=== PATIENT | female | born 1980 | race Caucasian/White ===

== ENCOUNTER 2024-08-21 01:00 | Day surgery (SDC) | payer OTHER, SELFPAY ==
[2024-08-09 11:52] VITALS: BMI 24.5
--- NOTE | 2024-08-09 12:23 | PC.NURSE ---
Report to the Outpatient Waiting Room, entrance under the green pavilion located off [facility], at time __0900AM on date _08/21/24 . Planned Procedure Time: __1100AM .? Time changes happen often and if your time is changed the preop area will call you the afternoon before. - You and your visitor will be asked to self-screen and do not enter if you have any COVID symptoms. Please call surgeon if you need to reschedule. - A mask is optional within the hospital at this time. Patients may have clear liquids (water, carbonated beverages, clear teas, apple juice) until 3 hours prior to surgery with a maximum of 20 ounces. - No food from midnight until time of surgery and no smoking, or chewing tobacco (or any form of nicotine). NO MED MARIJUANA ON THE MORNING OF SURGERY No chewing gum, candy or mints. Take only the following medications with a SIP of water on the morning of surgery: _BUSPIRONE, BUPROPRION, VENLAFAXINE, ALPRAZOLAM,_AMLODIPINE DO NOT STOP ANY OF YOUR OTHER PRESCRIPTION MEDICATIONS PRIOR TO SURGERY EXCEPT THE FOLLOWING Hold all vitamins and supplements for 3 days per anesthesiologist. Medications to discontinue per physician ORENCIA-MANAGE PER YOUR MILKING MACHINE OPERATOR INSTRUCTION: D/C 2WKS BEFORE SURGERY AND D/C 2 WKS AFTER SURGERY Date to take last dose Please no make-up, nail urdu, hairspray, perfume, deodorant, or body powder the day of surgery.? No jewelry (including any body piercings) or valuables the day of surgery, leave them at home.? Please take a shower or bath the night before, or the morning of, surgery with an antibacterial soap.? Wear comfortable, loose fitting clothing.? Children are encouraged to wear pajamas. - Jewelry must be removed prior to entering the operating room.? Rings and piercings that are not removed may be cut off. - The hospital will not accept responsibility for valuables.? - Please leave all valuables, including medications, at home the day of surgery. If you are going home after surgery, a licensed owner operator tanker truck driver must drive you home.? - NO public transportation without another adult if you receive anesthesia. - We recommend that an adult stay with you for 24 hours following discharge. - We also recommend that you do not drive, make important decision, drink alcoholic beverages, or take any drugs that were not prescribed by your health care provider for at least 24 hours after your discharge time. Follow any additional instructions given to you from your surgeon. Telephone instructions given to __MELISSA and asked if any additional questions and then verbalized understanding. Patient advised to call surgeon office or pre surgery nurse liaison [phone] if any additional questions.
[2024-08-21] VITALS (9 sets, daily range): BP systolic 131–157; BP diastolic 60–97; PULSE 81–119; RESP 13–17; TEMP 36.7–36.9; O2SAT 97–100
--- OUTSIDE RECORDS SUMMARY | 2024-08-21 01:04 | XMS_ITS | Clinical Summary ---
Author Organization [facility] Address [address] [place] [address] Care Team Providers Care Settlement Processor Name Role Phone Dewayne Gomes MD Primary Care Provider Source Comments [facility],non-[facility] Affiliates and Associated Physician Practices is amultiple site organization consisting of ambulatory clinics and hospital sitesin [place], [place], [place] and [place]. This disclosure is being madepursuant to the Care Everywhere program and may not contain all information available regarding this patient. Last updated 17.[facility] [employer] Social History Tobacco Use Types Packs/Day Years Used Date Smoking Tobacco: Never Assessed Comments Unknown Sex and Gender Information Value Date Recorded Sex Assigned at Not on file Legal Sex Female 8:54 AM BIOASSAYIST Gender Identity Not on file Sexual Orientation Not on file Plan of Treatment Health Maintenance Due Date Last Done Comments LIPID TESTING 1981 MAMMOGRAM 1981 HIV SCREENING 1996 HEPATITIS C SCREENING 05/31/1999 DTAP/TDAP/TD VACCINES (1 - Tdap) 2000 HEPATITIS B VACCINE (1 of 3 - 19+ 3-dose series) 2000 COVID-19 VACCINE (2023-2 5 season) 2023 DEPRESSION SCREENING 03/06/2024 INFLUENZA VACCINE (Season Ended) 2024 ZOSTER VACCINE (1 of 2) 06/05/2031 HIB VACCINE Aged Out No longer eligi ble based on patient's age to complete this topic HPV VACCINE Aged Out No longer eligi ble based on patient's age to complete this topic MENINGOCOCCAL (Group B) VACC INE SHARED DECISION-MAKING Aged Out No longer eligibl e based on patient's age to complete this topic MENINGOCOCCAL GROUPS A/C/Y/W VACCINE Aged Out No longer eligible b ased on patient's age to complete this topic PNEUMOCOCCAL VACCINE Aged Out No long er eligible based on patient's age to complete this topic Insurance MEDICAID - OUT OF STATE [facility] Care Teams Settlement Processor Relationship Specialty Start Date End Date Dewayne Gomes MD PCP - General 04/04/18
--- OUTSIDE RECORDS SUMMARY | 2024-08-21 01:04 | XMS_ITS | Encounter Summary ---
Author Organization [facility] Facility Care Team Providers Care Manager Of Community Relations Name Role Phone John Seay DO Primary Care Provider + Eduardo Chang MD Unavailable [phone] John Seay DO Primary Care Provider + Encounter Details Date Type Department Care Team (Latest Contact Info) Description 03/30/2018 Orders Only [facility]INCON[facility] ProviderDior MD [address] [place] [id number] Social History Tobacco Use Types Packs/Day Years Used Date Smoking Tobacco: Never Assessed Comments Unknown Sex and Gender Information Value Date Recorded Sex Assigned at Not on file Legal Sex Female 5:32 AM TELECOMMUNICATIONS ADMINISTRATOR Gender Identity Female 10/24/2019 3:24 PM CDT Sexual Orientation Straight 12/03/2018 7: 01 AM CDT documented as of this encounter Plan of Treatment Not on file documented as of this encounter Procedures Procedure Name Priority Date/Time Associated Diagnosis Comments SCAN - LABS 03/30/2018 12:00 AM TELECOMMUNICATIONS ADMINISTRATOR documented in this encounter Results * SCAN - LABS (03/30/2018 12:00 AM TELECOMMUNICATIONS ADMINISTRATOR) Narrative 03/30/2018 12:00 AM TELECOMMUNICATIONS ADMINISTRATOR Ordered by an unspecified provider. us Historical Provider Final Res ult documented in this encounter Visit Diagnoses Not on filedocumented in this encounter Care Teams Manager Of Community Relations Relationship Specialty Start Date End Date John Seay DO PCP - General Family Medicine 04/05/18 06/14/23 John Seay DO [address] [place] [address] PCP - General Family Medicine 06/15/23 Eduardo Chang MD [address] [place] [address] Consulting Physician Rheumatology 05/04/18 documented as of this encounter
--- OUTSIDE RECORDS SUMMARY | 2024-08-21 01:04 | XMS_ITS | Referral Summary ---
Author Organization [place] [id number] [facility] Address [address] [place] [address] Phone Care Team Providers Care Prescription Eyeglass Maker Name Role Phone Eduardo Chang MD Unavailable [phone] John Seay DO Primary Care Provider + Encounters Date Type Department Care Team Description 06/18/2024 Results Follow-Up [facility] [address] [place] [address] Cielo Ptael PA CBC with auto differential, Comprehensive metabolic panel, Basic metabolic panel 06/17/2024 3:30 PM CDT Office Visit [facility] [address] [place] [address] Cielo Patel PA Seronegative rheumatoid arthritis (HCC) (Primary Dx); Fibromyalgia; Encounter for medication monitoring from Last 3 Months Allergies Active Allergy Reactions Criticality Noted Date Comments Morphine Itching,Nausea & Vomiting Low 04/09/2018 Medications cetirizine (ZyrTEC) 10 mg tabletIndicati ons:Seasonal Allergic Rhinitis Take 1 tablet (10 mg total) by mouth every morning Active busPIRone (BUSPAR) 10 mg tablet TAKE 1 TABLET BY MOUTH THREE TIMES A DAY 270 tablet 1 09/14/[address] (PROTONIX) 40 mg EC tablet TAKE 1 TABLET BY MOUTH TWICE A DAY 60 tablet 2 02/09/20 23 Active venlafaxine XR (EFFEXOR-XR) 150 mg 24 hr capsule TAKE 1 CAPSULE BY MOUTH EVERY DAY 90 capsule 03/17/19 24 Active venlafaxine XR (EFFEXOR-XR) 75 mg 24 hr capsule TAKE 1 CAPSULE BY MOUTH EVERY DAY 90 capsule 03/17/[address] (VOLTAREN) 75 mg EC tablet TAKE 1 TABLET BY MOUTH TWICE A DAY 60 tablet 2 02/29/20 24 Active ALPRAZolam (XANAX) 0.25 mg tablet Take 1 tablet (0.25 mg total) by mouth 2 (two) times a day Active leflunomide (ARAVA) 20 mg tablet Take 1 tablet (20 mg total) by mouth daily 90 tablet 1 06/08/19 25 Active tiZANidine (ZANAFLEX) 4 mg tablet Take 1 tablet (4 mg total) by mouth every 6 (six) hours as needed for muscle spasms 30 tablet 2 06/18/19 25 Active Orencia ClickJect 125 mg/mL auto-injector INJECT 125 MG (1 ML) UNDER THE SKIN EVERY 7 DAYS 4 mL 2 08/07/19 25 Active ferrous sulfate 325 mg (65 mg of elemental iron) tabletIndicati ons:Iron Deficiency Anemia Take 1 tablet (325 mg total) by mouth daily with breakfast 30 tablet 11 08/03/19 24 025 Orencia ClickJect 125 mg/mL auto-injector INJECT 125 MG (1 ML) UNDER THE SKIN EVERY 7 DAYS 4 mL 2 05/28/19 25 025 Discontinued Active Problems Problem Noted Date Diagnosed Date Primary osteoarthritis involving multiple joints 12/18/2023 Assessment & Plan (12/18/2023 3:43 PM CDT): Known multifocal OA, requests refill of diclofenac 75 mg bid. Aware of risks of NSAIDs and to avoid taking any ibuprofen/naproxen while taking diclofenac. Check monitoring labs. SHAYNE (obstructive sleep apnea) 07/18/2022 Assessment & Plan (01/16/2023 9:22 AM CLINICAL REVIEWER): Patient has continued symptoms, she will continue with CPAP at 12 cm of water pressure. I have ordered an F 30 mask. I have also provided the patient a nasal mask. [facility] medical Assessment & Plan (09/19/2022 3:55 PM CDT): I have sen to supply the patient with CPAP card set at 12 cm water pressure. The patient's DME is [facility]. Patient continue to wear CPAP at 12 cm water pressure while sleeping. Assessment & Plan (07/18/2022 8:58 AM CDT): The patient is benefiting from CPAP therapy. She has been able to be weaned off her antihypertensive medications. Her AHI still remained slightly high and I will send an order to [facility] to increase her CPAP setting to 12 cm water pressure. She will follow-up with me in 2 months. 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 Continue current treatment. Assessment & Plan (03/29/2022 3:59 PM CLINICAL REVIEWER): Chronic condition Not at goal Increase effexor Assessment & Plan (10/26/2021 4:29 PM CDT): stable Assessment & Plan (08/31/2021 3:22 PM CDT): Patient is well controlled. Continue current treatment. Primary hypertension 05/20/2021 Assessment & Plan (07/11/2022 4:51 PM CDT): Doing well Off all bp meds Assessment & Plan (10/26/2021 4:29 PM CDT): Patient is well controlled. Continue current treatment. Assessment & Plan (08/31/2021 3:22 PM CDT): Patient is well controlled. Continue current treatment. Assessment & Plan (07/22/2021 3:35 PM CDT): Cont current rx Assessment & Plan (06/24/2021 10:25 AM CDT): Add clonidine patch Fu 4 weeks Assessment & Plan (05/20/2021 7:51 AM CDT): Blood pressure is markedly elevated. Going to place her on Toprol XL 50 mg will recheck her in 3 weeks Other dysphagia 04/05/2021 Assessment & Plan (04/05/2021 12:24 PM CLINICAL REVIEWER): Modified barium swallow Us thyroid DUB (dysfunctional uterine bleeding) 10/15/2020 Assessment & Plan (02/03/2021 8:31 AM CLINICAL REVIEWER): Saw test puller Will monitor Assessment & Plan (10/15/2020 8:06 AM CDT): Will see test puller Appointment is scheduled Hirsutism 10/15/2020 Assessment & Plan (10/15/2020 8:09 AM CDT): Noticed about 1 month ago Check tsh Free t4 lh fsh Annual physical exam 08/04/2020 Assessment & Plan (11/11/2022 7:57 AM CDT): Meds reviewed and reconciled Assessment & Plan (08/31/2021 3:23 PM CDT): meds Chart Lab reviewed Assessment & Plan (08/04/2020 7:29 AM CDT): Patient is well controlled. Continue current treatment. Right knee pain 02/24/2020 Assessment & Plan (05/25/2020 4:40 PM CDT): Ongoing increased knee pain, denied benefit with PT, obtain XR as previously ordered Encounter for medication monitoring 09/16/2019 Assessment & Plan (06/17/2024 1:09 PM CDT): Hepatitis negative 2018 Quant gold negative 2018 Continue routine lab monitoring Assessment & Plan (03/18/2024 1:52 PM CLINICAL REVIEWER): Hepatitis negative 2019 Quant gold negative 2019 Continue routine lab monitoring Assessment & Plan (12/18/2023 9:37 AM CDT): Hepatitis negative 2019 Quant gold negative 2019 Continue routine lab monitoring Assessment & Plan (09/18/2023 8:51 AM CDT): Hepatitis negative 2019 Quant gold negative 2019 Continue routine lab monitoring Assessment & Plan (06/15/2023 3:23 PM CDT): Hepatitis negative 2019 Quant gold negative 2019 Continue routine lab monitoring Assessment & Plan (03/16/2023 12:52 PM CLINICAL REVIEWER): Hepatitis negative 2019 Quant gold negative 2019 Continue routine lab monitoring Assessment & Plan (12/15/2022 1:18 PM CDT): Hepatitis negative 2019 Quant gold negative 2019 Continue routine lab monitoring Assessment & Plan (09/12/2022 10:56 AM CDT): Hepatitis negative 2019 Quant gold negative 2019 Continue routine lab monitoring Assessment & Plan (06/13/2022 12:06 PM CDT): Hepatitis negative 2019 Quant gold negative 2019 Continue routine lab monitoring Assessment & Plan (04/18/2022 9:21 AM CLINICAL REVIEWER): Hepatitis negative 2019 Quant gold negative 2019 Continue routine lab monitoring Assessment & Plan (02/14/2022 11:57 AM CLINICAL REVIEWER): Hepatitis negative 2019 Quant gold negative 2019 Continue routine lab monitoring Assessment & Plan (11/15/2021 12:38 PM CDT): Hepatitis negative 2019 Quant gold negative 2019 Continue routine lab monitoring Assessment & Plan (08/09/2021 12:30 PM CDT): Hepatitis negative 2019 Quant gold negative 2019 Continue routine lab monitoring Assessment & Plan (05/10/2021 8:54 AM CLINICAL REVIEWER): Hepatitis negative 2019 Quant gold negative 2019 Continue routine lab monitoring Assessment & Plan (03/09/2021 3:50 PM CLINICAL REVIEWER): Hepatitis negative 2019 Quant gold negative 2019 Continue routine lab monitoring Assessment & Plan (01/11/2021 2:44 PM CLINICAL REVIEWER): Hepatitis negative 2019 Continue routine lab monitoring Assessment & Plan (11/17/2020 3:39 PM CDT): Hepatitis negative 2019 Continue routine lab monitoring Assessment & Plan (08/17/2020 9:32 AM CDT): Hepatitis negative 2019 Continue routine lab monitoring Assessment & Plan (05/25/2020 1:05 PM CDT): Hepatitis negative 2019 Continue routine lab monitoring Assessment & Plan (02/24/2020 2:23 PM CLINICAL REVIEWER): Hepatitis negative 2019 Continue routine lab monitoring Assessment & Plan (11/25/2019 3:30 PM CDT): Hepatitis negative 2019 Continue routine lab monitoring Assessment & Plan (09/16/2019 8:56 AM CDT): Hepatitis negative 2019 Continue routine lab monitoring Right carpal tunnel syndrome 01/17/2019 Overview (01/17/2019): Added automatically from request for surgery [id number] Assessment & Plan (01/17/2019 11:16 AM CLINICAL REVIEWER): Will have surgery in 10 days Carpal tunnel syndrome of left wrist 12/07/2018 Overview (12/07/2018): Added automatically from request for surgery [id number] Acute non-recurrent frontal sinusitis 07/18/2018 Assessment & Plan (06/15/2023 4:13 PM CDT): Possible sinusitis, has not been a recurrent problem last occurring a few years ago. She was hoping for antibiotics, but as this just began yesterday instead recommend first trying conservative measures. If she fails to improve as she does not have a PCP, then recommend being evaluated at . Assessment & Plan (01/17/2019 11:16 AM CLINICAL REVIEWER): omnicef 300 mg bid 1 week Prednisone 20 daiy 5 days Assessment & Plan (07/18/2018 11:49 AM CDT): omnicef 300 mg bid 1 week Migraine 07/18/2018 Assessment & Plan (04/05/2021 12:29 PM CLINICAL REVIEWER): Refer to neurologist Assessment & Plan (07/18/2018 11:50 AM CDT): Refill imitrex Attention deficit hyperactiv ity disorder (ADHD), combined type 06/06/2018 Renal stones 06/06/2018 Palpitations 05/21/2018 Assessment & Plan (05/21/2018 4:47 PM CDT): Pt reports palpitations and chest pain to the right of her sternum, instructed to follow up with PCP Seronegative rheumatoid arthritis 04/09/2018 Overview (03/16/2023): Labs: AVISE negative Mildly elevated white count (11.5) with neutrophilia Xrays: XR B feet - mild OA first MTP XR SI joints - mild OA bilaterally with tiny marginal osteophytes XR L hand - normal US right hand/wrist (04/17/18): Mild effusions and mild/moderate power doppler on examination which will have to be correlated clinically. Grade 1 effusion and grade 2 power doppler in the radial/scaphoid joint. Grade 1 effusion and grade 1 power doppler in the 3rd MCP joint. Grade 1 power doppler in the volar wrist. Grade 1 effusion in the 2nd and 4th MCP joints and 2nd PIP joint. Marked synovial thickening in the 3rd and 4th MCP joints. Moderate synovial thickening in the 2nd and 3rd PIP joints. An enlarged median nerve is identified. US left hand/wrist (12/11/18): Mild effusions and power doppler on examination which will have to be correlated clinically. Marked synovial thickening in the 2nd and 3rd PIP joints and 4th MCP joint. Grade 1 effusion and grade 1 power doppler in the radial/scaphoid joint. Grade 1 effusion in the 2nd PIP joint. An enlarged median nerve is identified. US right hand/wrist (02/23/23): Grade 1 effusion and grade 1 power doppler in the radial scaphoid joint. Marked synovial thickening in the 3rd PIP joint. Moderate synovial thickening in the 2nd PIP joint. An enlarged median nerve at 0.16 cm2 is identified. US right foot/ankle (12/06/18): Mild effusion limited to a grade 1 effusion in the 2nd MTP joint which should be correlated clinically. A mildly enlarged plantar fascia is seen. No other significant findings appreciated. Assessment & Plan (06/17/2024 3:41 PM CDT): Low cdai. Overall RA appears stable at present. Will continue leflunomide with Orencia SQ and diclofenac 75 mg bid prn. Labs as below. Follow up in 3 months or sooner as needed. Assessment & Plan (03/18/2024 4:42 PM CLINICAL REVIEWER): High cdai with a preponderance of tender joints and 16/18 tender points on exam. Do favor that much of her pain is due to or at least amplified by her fibro, however she does describe some inflammatory sounding pain and she favors that her current state is due to an RA flare. Understanding the numerous risk of steroids, it is her preference to get an IM triamcinolone today. Reminded of SE of steroids including but not limited to HTN, increased blood glucose, cataracts, glaucoma, AVN, and osteoporosis with vermin exterminator use. Advised that if she continues to require steroids as she has over the last year, then we will need to consider a repeat US and change in her RA regimen. She expressed understanding. Will give IM triamcinolone today and otherwise continue leflunomide with Orencia SQ. Labs as below. Follow up in 3 months or sooner as needed. Assessment & Plan (12/18/2023 3:39 PM CDT): Moderate cdai with a preponderance of tender joints. Overall RA appears largely stable which she was in agreement with. Will continue leflunomide with Orencia SQ. Labs as below. Follow up in 3 months or sooner as needed. Assessment & Plan (09/18/2023 4:08 PM CDT): Moderate cdai of 13 with far more tender than swollen joints. Overall RA appears largely stable which she was in agreement with. Will continue leflunomide with Orencia SQ. Labs as below. Follow up in 3 months or sooner as needed. Assessment & Plan (06/15/2023 4:12 PM CDT): Prior to yesterday she had felt quite stable from an RA standpoint. Today suspects that she has come dwon with a sinus infection which is leading to her joints flaring. Denies benefit after three doses of diclofenac which has left her discouraged, she is hoping for more immediate and significant relief. Will give a short course of prednisone, reviewed potential AE which she acknowledges. Will otherwise continue leflunomide with Orencia SQ. Labs as below. Follow up in 3 months or sooner as needed. Assessment & Plan (03/17/2023 4:50 PM CLINICAL REVIEWER): Cdai = 13. She does not describe inflammatory sounding pain and a repeat hand US on 02/23 did not show significant active inflammation. Overall her RA appears stable at present. Will continue leflunomide with Orencia SQ. Discussed that she could try using diclofenac 75 mg bid instead of prn to see if this can offer greater benefit. Labs as below. Follow up in 3 months or sooner as needed. Assessment & Plan (12/15/2022 4:09 PM CDT): High cdai today whereas last visit her cdai was in remission. Appears to be flaring. Previously had notable improvement with Orencia. Due to burden of disease will give patient a triamcinolone injection. Patient made aware of SE of steroids including but not limited to HTN, increased blood glucose, cataracts, glaucoma, AVN, and osteoporosis with vermin exterminator use. Will otherwise continue leflunomide with Orencia SQ and monitor. Can continue to use diclofenac prn. Labs as below. Follow up in 3 months or sooner as needed should flare persist. Assessment & Plan (11/11/2022 7:56 AM CDT): Doing well Assessment & Plan (09/12/2022 4:11 PM CDT): Cdai in remission. Notable improvement with Orencia. Will continue leflunomide with Orencia SQ and monitor. Can continue to use diclofenac prn. Labs as below. Follow up in 3 months or sooner as needed. Assessment & Plan (07/11/2022 4:51 PM CDT): meds reviewed Doing well Assessment & Plan (06/13/2022 4:29 PM CDT): Moderate cdai. No benefit with Rinvoq. Now Orencia SQ and is noting some benefit. Will continue leflunomide with Orencia SQ and allow more time for effect. Can continue to use diclofenac prn. Labs as below. Follow up in 3 months or sooner as needed. Assessment & Plan (04/18/2022 4:21 PM CLINICAL REVIEWER): High cdai. No benefit with Rinvoq. At this time discussed change from Rinvoq to Orencia SQ, reviewed AE and dosing, pt agreeable so will check benefits. Will also try switching from meloxicam to diclofenac, reviewed AE including GI upset, PUD, and nephrotoxicity. She does not feel steroids are warranted at present, will avoid as able due to risks. Labs as below. Follow up in 2 months or sooner as needed. Assessment & Plan (03/29/2022 4:02 PM CLINICAL REVIEWER): Add prednisone 20 mg po daily 5 days Assessment & Plan (02/14/2022 4:34 PM CLINICAL REVIEWER): High cdai. Discussed consideration for changing Humira, pt expressed interest in Rinvoq. Denies h/o DVT/PE or CAD. Reviewed dosing and potential AE, pt agreeable, will check benefits. Gave samples x2 but will not start until we hear back on coverage. Until then will continue leflunomide 20 mg daily with Humira. Due to burden of disease will give patient a triamcinolone injection. Patient made aware of SE of steroids including but not limited to HTN, increased blood glucose, cataracts, glaucoma, AVN, and osteoporosis with longterm use. Labs as below. Follow up in 2 months or sooner as needed. Assessment & Plan (11/15/2021 3:50 PM CDT): Moderate cdai. She reports improvement since starting Humira in March, but is now noticing that the benefit wears off before each dose is due. Discussed that we could try getting weekly dosing which she was interested in doing, samples x2 given today and will check benefits. Continue leflunomide 20 mg daily. Labs as below. Follow up in 3 months or sooner as needed. Assessment & Plan (08/31/2021 3:23 PM CDT): Patient is well controlled. Continue current treatment. Assessment & Plan (08/09/2021 4:40 PM CDT): Low/moderate cdai. She reports significant symptomatic improvement since starting Humira in March, stating this is the best she has felt since diagnosis. She continues to have injection site reactions, but reports that they have improved some with time, will continue to monitor. She will call if persistent/wrosening. Otherwise will continue Humira 40 mg SQ every 2 weeks and leflunomide 20 mg daily. Labs as below. Follow up in 3 months or sooner as needed. Assessment & Plan (05/20/2021 7:44 AM CDT): She is doing better on the Humira. She is injecting 40 mg subcutaneously every 2 weeks. She does have some local injection site reaction. She is using a Benadryl. For now she will continue the injections. She follows up with a parking enforcement manager routinely. Assessment & Plan (05/10/2021 4:19 PM CLINICAL REVIEWER): Low/moderate cdai, significantly improved from prior. She is already noticing improvement since starting Humira in March. She will try premedicating with benadryl and monitor the injection site reactions, discussed that typically these improve with time; she will call if persistent/wrosening. Otherwise will continue Humira 40 mg SQ every 2 weeks and leflunomide 20 mg daily. Recent labs reviewed. Follow up in 3 months or sooner as needed. Assessment & Plan (03/09/2021 4:04 PM CLINICAL REVIEWER): High cdai. Pt feels that her joint complaints have only progressed since starting Enbrel in November. At this time will d/c Enbrel and instead check benefits for Humira, pt agreeable. Samples of Humira x2 given today. Continue leflunomide 20 mg daily. Labs today as below. Follow up in 2 months or sooner as needed. Assessment & Plan (02/03/2021 8:30 AM CLINICAL REVIEWER): Rheumatology note reviewed Assessment & Plan (01/12/2021 4:35 PM CLINICAL REVIEWER): High cdai. Discussed lower suspicion that the peripheral edema is 2/2 Enbrel, will monitor for now. Suspect increased joint pain due to the fact that her RA is not currently controlled and has not been on Enbrel long enough for effect. Due to burden of disease will give patient a triamcinolone injection. Patient made aware of SE of steroids including but not limited to HTN, increased blood glucose, cataracts, glaucoma, AVN, and osteoporosis with vermin exterminator use. Continue leflunomide 20 mg daily with Enbrel and allow more time for effect. Follow up in 2 months or sooner as needed. Assessment & Plan (11/17/2020 4:54 PM CDT): cdai = 19, moderate. Noted dramatic benefit after IM triamcinolone in August which lasted for three weeks and has gradually worsened again since that time. Discussed that pain is likely 2/2 a combination of active RA and fibromyalgia. Discussed adding a biologic such as Humira or Enbrel to try to gain better control of her RA; reviewed potential AE and provided handout, pt agreeable, will check benefits. Continue leflunomide 20 mg daily. Check Tspot. Follow up in 2 months or sooner as needed. Assessment & Plan (10/15/2020 8:06 AM CDT): Filled out paperwork for medical marijuana Assessment & Plan (08/17/2020 4:06 PM CDT): High cdai. Increased flare of small joint pain in the last 2 months, different from her usual fibromyalgia pain, feels like she did prior to starting leflunomide. Due to burden of disease will give patient a triamcinolone injection. Patient made aware of SE of steroids including but not limited to HTN, increased blood glucose, cataracts, glaucoma, AVN, and osteoporosis with longterm use. Will continue leflunomide 20 mg daily and monitor. Obtain labs today as below. Follow up in 3 months or sooner should flare persist despite the steroid. Assessment & Plan (05/25/2020 1:04 PM CDT): Moderate cdai. US of her L hand and R foot in December did not show significant inflammatory changes. Overall RA appears stable at this time. Will continue leflunomide 20 mg daily and monitor. Obtain labs today as below. Follow up in 3 months or sooner as needed. Assessment & Plan (02/24/2020 2:23 PM CLINICAL REVIEWER): Moderate cdai. US of her L hand and R foot in December did not show significant inflammatory changes. Overall RA appears stable at this time. Will continue leflunomide 20 mg daily and monitor. Obtain labs today as below. Follow up in 3 months or sooner as needed. Assessment & Plan (11/25/2019 3:30 PM CDT): Moderate cdai. US of her L hand and R foot in December did not show significant inflammatory changes. Overall RA appears stable at this time. Will continue leflunomide 20 mg daily and monitor. Obtain labs today as below. Follow up in 3 months or sooner as needed. Assessment & Plan (09/26/2019 11:47 AM CDT): Sees [employer] Worker Assessment & Plan (09/16/2019 8:54 AM CDT): Moderate cdai. US of her L hand and R foot in December did not show significant inflammatory changes. Overall RA appears stable at this time. Will continue leflunomide 20 mg daily and monitor. Obtain labs today as below. Follow up in 3 months or sooner as needed. Assessment & Plan (06/11/2019 10:54 AM CDT): Moderate cdai with several tender joints but no appreciable synovitis. US of her L hand and R foot in December did not show significant inflammatory changes. Overall RA appears stable at this time. Will continue leflunomide 20 mg daily and monitor. Obtain labs today as below. Follow up in 3 months or sooner as needed. Assessment & Plan (03/12/2019 12:29 PM CLINICAL REVIEWER): Moderate cdai with several tender joints but no appreciable synovitis. Had been feeling improved overall but now worse again in the last month which she attributes to weather fluctuations and stress with a new job (working 3 to midnight). US of her L hand and R foot in December did not show significant inflammatory changes. Will continue leflunomide 20 mg daily and monitor, pt is hoping that the joint complaints will improve as the weather stabilizes. Obtain labs today as below. Follow up in 3 months or sooner as needed. Assessment & Plan (12/04/2018 4:43 PM CDT): Moderate cdai with several tender joints but no appreciable synovitis. She continues to complain of joint pain with AM stiffness for 15-20 minutes and expresses concern for ongoing inflammation. Primary complaints are bilateral hip, knee, and foot/ankle pain. At this time will obtain US foot/sandie to assess inflammatory burden, if activity is seen, then will discuss starting additional medication. In any case, starting something new would be deferred until two weeks postop if healing well at that time. If no significant inflammation, then will refer to PT for her hip/knee pain. For now, continue leflunomide 20 mg daily. Obtain labs today as below. Follow up in 3 months or sooner as needed. Assessment & Plan (10/30/2018 4:43 PM CDT): Moderate cdai with several tender joints but no appreciable synovitis. On leflunomide 20 mg daily which she feels has helped her joint complaints 75%. Will continue leflunomide 20 mg daily and allow more time for effect. Assessment & Plan (08/24/2018 4:39 PM CDT): Moderate cdai with several tender joints but no appreciable synovitis. On leflunomide 20 mg daily, with complaint of hair thinning since starting but pt does not wish to change therapy at present. Significant ongoing pain complaints, suspect 2/2 fibromyalgia, see below. Will continue leflunomide 20 mg daily and allow more time for effect. Recheck labs today. Follow up in 3 months or sooner as needed. Assessment & Plan (07/20/2018 11:26 AM CDT): 37Bradley presents for evaluation of diffuse myalgias, muscle weakness, and polyathralgia with severe and chronic fatigue. She notes pain and stiffness in her hands with difficulty gripping things, labs drawn by her PCP revealed a +CCP. Our serologic workup was negative including the CCP. Xrays revealed only mild osteoarthritic changes. But, her ultrasound revealed mild effusions and mild/moderate PD with marked thickening of the 3rd and 4th MCP and moderate thickening of the 2nd and 3rd PIP. On leflunomide 10 mg daily, tolerating without adverse effect; will increase to 20 mg daily. However, given possible URI at this time she will hold leflunomide until her symptoms begin to improve; if symptoms persist she will follow up with PCP. Recheck labs today. Follow up in 1 month or sooner as needed. Assessment & Plan (06/21/2018 4:29 PM CDT): 37yoF presents for evaluation of diffuse myalgias, muscle weakness, and polyathralgia with severe and chronic fatigue. She notes pain and stiffness in her hands with difficulty gripping things, labs drawn by her PCP revealed a +CCP. Our serologic workup was negative including the CCP. Xrays revealed only mild osteoarthritic changes. But, her ultrasound revealed mild effusions and mild/moderate PD with marked thickening of the 3rd and 4th MCP and moderate thickening of the 2nd and 3rd PIP. On exam today she has a moderate cdai with significant improvement in her synovitis compared to prior exams, ongoing tenderness in several joints as well as widespread soft tissue ttp. Based upon patient's concern regarding possible side effects to methotrexate, will switch to leflunomide at this time. Begin leflunomide 10 mg daily. Recheck labs today. Follow up in 1 month or sooner as needed. Assessment & Plan (05/21/2018 4:45 PM CDT): 37yoF presents for evaluation of diffuse myalgias, muscle weakness, and polyathralgia with severe and chronic fatigue. She notes pain and stiffness in her hands with difficulty gripping things, labs drawn by her PCP revealed a +CCP. Our serologic workup was negative including the CCP. Xrays revealed only mild osteoarthritic changes. But, her ultrasound revealed mild effusions and mild/moderate PD with marked thickening of the 3rd and 4th MCP and moderate thickening of the 2nd and 3rd PIP. On exam today she has a high cdai with more tender than swollen joints. Will increase methotrexate to 20 mg po weekly with folic acid 2 mg daily. Due to burden of disease will give patient a triamcinolone injection. 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 Recheck labs today. Follow up in 1 month. Assessment & Plan (04/23/2018 4:47 PM CLINICAL REVIEWER): 37yoF presents for evaluation of diffuse myalgias, muscle weakness, and polyathralgia with severe and chronic fatigue. She notes pain and stiffness in her hands with difficulty gripping things, labs drawn by her PCP revealed a +CCP. Our serologic workup was negative including the CCP. Xrays revealed only mild osteoarthritic changes. But, her ultrasound revealed mild effusions and mild/moderate PD with marked thickening of the 3rd and 4th MCP and moderate thickening of the 2nd and 3rd PIP. On exam today she has a high cdai with more tender than swollen joints and 16/18 tender points. 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 Will begin treatment with methotrexate 12.5 mg po weekly with folic acid 1 mg daily. Follow up in 1 month with repeat labs, will titrate dose if labs stable and tolerating without adverse effect. Assessment & Plan (04/09/2018 3:55 PM CLINICAL REVIEWER): 37yoF presents for evaluation of diffuse myalgias, muscle weakness, and polyathralgia with severe and chronic fatigue. A diagnosis of fibromyalgia has been suggested in the past, and she was recently started on Gabapentin with improvement in her sleep and muscle pains, currently taking 300 mg qAM, 300 mg midday, and 600 mg qHS. She notes pain and stiffness in her hands with difficulty gripping things, labs drawn by her PCP revealed a +CCP. She was evaluated by rheumatology and told that she likely had an overlap of fibromyalgia and early RA. On exam today she has fairly widespread muscle and joint tenderness with questionable synovitis in a few joints. MMT with 4/5 strength diffusely. Based upon history and exam findings agree with likely diagnosis of fibromyalgia, an overlap with an inflammatory arthritis such as RA is possible. To fully evaluate will check appropriate serologies, xrays, and ultrasound with plan for follow up in 2 weeks to review results and to discuss treatment options. Will postpone the US until mid next week and hold any further Prednisone. Fibromyalgia 04/04/2018 Assessment & Plan (06/17/2024 3:41 PM CDT): Tapered off Lyrica last year due to uncertain need. Admits that she has not been working out routinely, recommend resuming this now. Will continue tizanidine 4 mg prn. Assessment & Plan (03/18/2024 4:43 PM CLINICAL REVIEWER): Tapered off Lyrica last year due to uncertain need. Today again has widespread soft tissue tenderness. Admits that she has not been working out routinely, recommend resuming this now. Will continue tizanidine 4 mg prn. Assessment & Plan (12/18/2023 3:45 PM CDT): Tapered off Lyrica since last visit and remains largely stable. Will continue tizanidine 4 mg prn. Encouraged to continue to exercise regularly. Assessment & Plan (09/18/2023 4:09 PM CDT): On Lyrica 225 mg bid and tizanidine 4 mg prn. Encouraged to continue to exercise regularly. As she has been exercising routinely her fibro has felt improved and she is hoping to try reducing her dose of Lyrica, but would like to do so slowly. Will try reducing Lyrica to 150 mg qAM with 225 mg qPM for 2 weeks, if stable then would decrease to 150 mg bid. She will MyChart an update in 4 weeks. Assessment & Plan (06/15/2023 3:23 PM CDT): On Lyrica 225 mg bid and tizanidine 4 mg prn, additional options limited, will continue. Encouraged to continue to exercise regularly. Assessment & Plan (03/17/2023 4:51 PM CLINICAL REVIEWER): On Lyrica 225 mg bid and tizanidine 4 mg prn, additional options limited, will continue. Encouraged to continue to exercise regularly. Assessment & Plan (12/15/2022 1:18 PM CDT): On Lyrica 225 mg bid and tizanidine 4 mg prn, additional options limited, will continue. Continue tens unit prn. Encouraged to exercise regularly. Assessment & Plan (09/12/2022 10:56 AM CDT): On Lyrica 225 mg bid and tizanidine 4 mg prn, additional options limited, will continue. Continue tens unit prn. Encouraged to exercise regularly. Assessment & Plan (06/13/2022 12:06 PM CDT): On Lyrica 225 mg bid and tizanidine 4 mg prn, additional options limited, will continue. Continue tens unit prn. Encouraged to exercise regularly. Assessment & Plan (04/18/2022 9:21 AM CLINICAL REVIEWER): On Lyrica 225 mg bid and tizanidine 4 mg prn, additional options limited, will continue. Continue tens unit prn. Encouraged to exercise regularly. Assessment & Plan (02/14/2022 4:35 PM CLINICAL REVIEWER): On Lyrica 225 mg bid and tizanidine 4 mg prn, additional options limited, will continue. Continue tens unit prn. Encouraged to exercise regularly. Assessment & Plan (11/15/2021 12:38 PM CDT): Stable. On Lyrica 225 mg bid and tizanidine 4 mg prn with some benefit, will continue. Continue tens unit prn. Encouraged to exercise regularly. Assessment & Plan (08/09/2021 12:30 PM CDT): Stable. On Lyrica 225 mg bid and tizanidine 4 mg prn with some benefit, will continue. Continue tens unit prn. Encouraged to exercise regularly. Assessment & Plan (05/20/2021 7:45 AM CDT): Remains on lyrica Assessment & Plan (02/03/2021 8:28 AM CLINICAL REVIEWER): She is on the amitriptyline 75 mg. She takes about 2 hours before she goes to bed. It does help her sleep but does not really help her fibromyalgia. She does take Lyrica and she does not notice any real change with the addition of the Elavil. I am going to have her stop the amitriptyline for the next week Assessment & Plan (10/24/2019 4:53 PM CDT): Increase elavil to 50 Chronic fatigue 07/27/2017 Assessment & Plan (01/16/2023 9:21 AM CLINICAL REVIEWER): Due to the continued fatigue, I have ordered a vitamin-D, vitamin B12, iron and ferritin level. Patient states that she does not feel like she is getting into a deeper stage of sleep. We briefly discussed stimulant therapy however the patient has anxiety. Assessment & Plan (10/26/2021 4:28 PM CDT): Check a new sleep study Issue is worsening Assessment & Plan (04/05/2021 12:25 PM CLINICAL REVIEWER): Cbc Chem 7 tsh Free t4 Assessment & Plan (10/24/2019 4:54 PM CDT): No new orders Assessment & Plan (09/26/2019 11:46 AM CDT): Still rough Resolved Problems Problem Noted Date Diagnosed Date Resolved Date Snoring 04/12/2022 07/18/2022 Assessment & Plan (04/12/2022 8:40 AM CLINICAL REVIEWER): The patient presents with snoring, witnessed apneas and daytime hypersomnia. I have recommended proceeding with a nocturnal polysomnogram with a split night protocol if necessary and no MSLT. BMI 33.0-33.9,adult 05/20/2021 06/25/19 Assessment & Plan (05/20/2021 7:54 AM CDT): Food diary Mild depression 04/05/2021 08/31/2021 Assessment & Plan (07/22/2021 3:35 PM CDT): Increase effexor to 150 mg daily Assessment & Plan (05/20/2021 7:44 AM CDT): She remains on venlafaxine XR 75 mg daily. Assessment & Plan (04/05/2021 12:26 PM CLINICAL REVIEWER): Increase effexor to 75 mg Hematochezia 10/15/2020 05/20/2021 Assessment & Plan (02/03/2021 8:31 AM CLINICAL REVIEWER): Saw Carmen Had a colonoscopy Told normal Assessment & Plan (10/15/2020 8:07 AM CDT): Past few weeks with every bowel movement Check a cbc See Carmen Cellulitis 02/04/2020 05/20/2021 Assessment & Plan (02/04/2020 2:33 PM CLINICAL REVIEWER): Cleocin 300m g 10 days Update 48 hr Call if worse Fibromyalgia 04/23/2018 05/20/2021 Overview (09/16/2019): Gabapentin Apr 2018 - Oct 2018 Lyrica Oct 2018 Assessment & Plan (05/10/2021 8:54 AM CLINICAL REVIEWER): Stable. On Lyrica 225 mg bid and tizanidine 4 mg prn with some benefit, will continue. Continue tens unit prn. Encouraged to exercise regularly. Assessment & Plan (03/09/2021 3:51 PM CLINICAL REVIEWER): Stable. On Lyrica 225 mg bid and tizanidine 4 mg prn with some benefit, will continue. Continue tens unit prn. Encouraged to exercise regularly. Assessment & Plan (01/12/2021 4:34 PM CLINICAL REVIEWER): Limited treatment options at this point. On Lyrica 225 mg bid with amitriptyline 75 mg qHS per PCP and tizanidine 4 mg prn with some benefit, will continue. Discussed that Lyrica can contribute to peripheral edema, will monitor. Continue tens unit prn. Encouraged to exercise regularly. Assessment & Plan (11/17/2020 4:55 PM CDT): Limited treatment options at this point. On Lyrica 225 mg bid with amitriptyline 75 mg qHS per PCP and tizanidine 4 mg prn with some benefit, will continue. Continue tens unit prn. Encouraged to exercise regularly. Assessment & Plan (08/17/2020 4:07 PM CDT): Appears largely stable at present. On Lyrica 225 mg bid with amitriptyline 75 mg qHS per PCP and tizanidine 4 mg prn with some benefit, will continue. Continue tens unit prn. Encouraged to exercise regularly. She will continue PT HEP, but may consider return to formal PT in the future. Assessment & Plan (05/25/2020 4:41 PM CDT): I suspect that this is causing the bulk of her pain. On Lyrica 225 mg bid with amitriptyline 75 mg qHS per PCP and tizanidine 4 mg prn with some benefit, will continue. Continue tens unit prn as well as the massage gun that she recently received. Encouraged to exercise regularly. She will continue PT HEP, but may consider return to formal PT in the future. Assessment & Plan (02/24/2020 4:28 PM CLINICAL REVIEWER): I suspect that this is causing the bulk of her pain at present. On Lyrica 225 mg bid with amitriptyline 75 mg qHS per PCP and tizanidine 4 mg prn without benefit. Overall feels fairly stable with this regimen and does not wish to make any changes. Continue tens unit prn. Encouraged to exercise regularly. She will continue PT HEP, but may consider return to formal PT. Assessment & Plan (11/25/2019 4:22 PM CDT): I suspect that this is causing the bulk of her pain at present. On Lyrica 225 mg bid with amitriptyline 50 mg qHS - working on dose titration with PCP, has follow up on Dec 10. At this time will give tizanidine 2 mg prn, warned of possible sedation. Continue tens unit prn. Encouraged to exercise regularly. She will continue PT HEP, but may consider return to formal PT, if needed will request order. Assessment & Plan (09/26/2019 11:52 AM CDT): Hold pristiq Wean Will start elavil after weaning Assessment & Plan (09/16/2019 8:55 AM CDT): I suspect that this is causing the bulk of her pain at present. She had felt improved with Lyrica 225 mg bid, though now feels that she is worsening again. Could consider the addition of Cymbalta or a TCA, however either would require clearance from psych - she will discuss with them and then let us know what options we have. Encouraged to exercise regularly. Follow up in 3 months or sooner if new medication is added. Assessment & Plan (06/11/2019 10:56 AM CDT): I suspect that this is causing the bulk of her pain at present. She had felt improved with Lyrica 225 mg bid, though now feels that she is worsening again. Has ongoing poor sleep due to switching back and forth between working days and nights, and also remains under a great deal of stress, both of which are likely contributing to her pain. We have previously discussed the use of Cymbalta if not adequately controlled, however this interacts with her Pristiq which she is not interested in changing as it has worked well for her depression. At this time, given external factors that are contributing, she would like to make no changes to her medication and allow more time for stabilization. Once again encouraged to exercise regularly. Follow up in 3 months or sooner as needed. Assessment & Plan (03/11/2019 1:04 PM CLINICAL REVIEWER): Improved with Lyrica 225 mg bid, will continue. In the future, may consider Cymbalta if not adequately controlled. Encouraged to exercise regularly. Assessment & Plan (12/04/2018 4:41 PM CDT): Improved with Lyrica 225 mg bid, will continue. In the future, may consider Cymbalta if not adequately controlled. Encouraged to exercise regularly. Assessment & Plan (10/30/2018 4:46 PM CDT): Pt increased gabapentin to 900 mg tid without relief, due to running out of medication she decreased to 300 mg tid for two days before stopping entirely. Acknowledges today that she does not feel gabapentin was giving any significant benefit. As such will begin treatment with Lyrica 75 mg bid and plan for follow up in ~6 weeks to reassess. Encouraged to exercise regularly. Assessment & Plan (08/24/2018 4:42 PM CDT): On gabapentin 900 mg qAM, 600 mg midday and qPM, some improvement with dose escalation. For the next month will try gabapentin 900 mg bid with the third dose at 600 mg, if this is well tolerated but widespread pain remains significant then will try increasing to 900 mg tid and monitor response. Pt will call if 900 mg tid is needed and will update prescription. Encouraged to exercise regularly. Assessment & Plan (07/20/2018 11:22 AM CDT): On gabapentin 600 mg TID at this time and notes increased pain in the morning/midday. Will trial increasing to 900 mg qAM and continue 600 mg midday and qPM. Encourage to exercise regularly. Monitor response and follow up in 4 weeks. Assessment & Plan (06/21/2018 4:25 PM CDT): Feels that she has improved with gabapentin 600 mg TID at this time and is tolerating without adverse effect, will continue. Encourage to exercise regularly. Assessment & Plan (05/21/2018 4:46 PM CDT): Patient with widespread pain and tenderness on exam with severe fatigue. No appreciable difference with increasing gabapentin to 600 mg qAM, 300 mg midday, and 600 mg qHS. Will continue to titrate dose, increase to 600 mg TID at this time and monitor response. Follow up 1 month. Assessment & Plan (04/23/2018 4:48 PM CLINICAL REVIEWER): Patient with widespread pain and tenderness on exam with severe fatigue. She was started on gabapentin per ortho, currently taking 300 mg qAM and midday with 600 mg qHS, further dose titration has been limited by sedation. Discussed that she may likely require additional treatment to manage her fibromyalgia pain, however at present will continue gabapentin as prescribed by ortho and begin treatment for SNRA. Depression 12/15/2015 04/05/2021 Assessment & Plan (02/03/2021 8:29 AM CLINICAL REVIEWER): I believe she can stop the amitriptyline for week and then I am going to start her on Effexor XR 37.5 mg daily she I will talking in 4 weeks Assessment & Plan (10/15/2020 8:10 AM CDT): Under more stress Work Family Will see if medical marijuana helps No plan Assessment & Plan (10/24/2019 4:54 PM CDT): Add buspar 7.5 mg bid Assessment & Plan (09/26/2019 11:52 AM CDT): Wean pristiq Start elavil 10 Immunizations Immunization Administration Dates Next Due Influenza, Quadrivalent, Spl it, Preservative Free, Intramuscular 11/10/2021,11/09/2021,11/25/2020,10/26,12/29/2018 Moderna SARS-CoV-2 Monovalen t Vaccination (12+ YRS) 10/24/2020,05/19/2020,04/21/2020 Social History Tobacco Use Types Packs/Day Years Used Date Smoking Tobacco: Former Cigarettes 0.6 25 0 08/15/2000 - 08/15/2020 Smokeless Tobacco: Never Tobacco Cessation:Counseling Given: Not Answered Comments:Been quit since August Alcohol Use Standard Drinks/Week Comments Yes 0 (1 standard drink = 0.6 oz pur e alcohol) occasionally AUDIT-C Answer Date Recorded Q1: How often do you have a drink containing alc ohol? Monthly or less 10/26/2021 Q2: How many drinks containi ng alcohol do you have on a typical day when you are drinking? 1 or 2 10/26/2021 Q3: How often do you have si x or more drinks on one occasion? Never 10/26/2021 PHQ-2 Answer Date Recorded PHQ-2 Total Score (If total score is 3 or more points, staff should administer the PHQ-9) 0 11/11/2022 Comments No Sex and Gender Information Value Date Recorded Sex Assigned at Not on file Legal Sex Female 5:32 AM CLINICAL REVIEWER Gender Identity Female 10/24/2019 3:24 PM CDT Sexual Orientation Straight 12/03/2018 7: 01 AM CDT Last Filed Vital Signs Vital Sign Reading Time Taken Comments Blood Pressure 162/84 06/17/2024 3:31 PM CDT Pulse 82 06/17/2024 3:31 PM CDT Temperature 35.6 C (96 F) 01/16/2023 8:30 AM CLINICAL REVIEWER Respiratory Rate 18 01/16/2023 8:30 AM CLINICAL REVIEWER Oxygen Saturation 98% 06/17/2024 3:31 PM CDT Inhaled Oxygen Concentration - - Weight 70.2 kg (154 lb 12.8 oz) 06/17/2024 3:31 PM CDT Height 162.6 cm (5' 4) 06/17/2024 3:31 PM CDT Body Mass Index 26.57 06/17/2024 3:31 PM CDT Plan of Treatment Not on file Procedures Procedure Name Priority Date/Time Associated Diagnosis Comments BASIC METABOLIC PANEL Routine 07/11/2024 11:45 AM CDT Elevated serum creatinine COMPREHENSIVE METABOLIC PANEL Routine 06/17/2024 3:46 PM CDT Encounter for medication monitoring CBC WITH AUTO DIFFERENTIAL Routine 06/17/2024 3:46 PM CDT Encounter for medication monitoring SCREENING MAMMOGRAM BILATERAL W LIZANDRO Schedule Routine, Read Routine (OP Routine) 04/07/2023 3:33 PM CLINICAL REVIEWER Screening mammogram, encounter for HEPATITIS C AB W/REFL TO HCV RNA, QN, PCR (REFL) Routine 04/09/2018 4:04 PM CLINICAL REVIEWER from Last 3 Months or Most Recently Relevant to Health Maintenance Results * (ABNORMAL) Basic metabolic panel (07/11/2024 11:45 AM CDT) Glucose 99 65 - 99 mg/dL [facility] Comment: Fasting reference interval BUN 14 7 - 25 mg/dL [facility] Creatinine 1.21(H) 0.50 - 0.99 mg/dL [facility] eGFR 57(L) > OR = 60 mL/min/1.7 3m2 [facility] BUN/creat ratio 12 6 - 22 (calc) [facility] Sodium 138 135 - 146 mmol/L [facility] Potassium, pl 3.6 3.5 - 5.3 mmol/L [facility] Chloride 103 98 - 110 mmol/L [facility] CO2 25 20 - 32 mmol/L [facility] Calcium 9.7 8.6 - 10.2 mg/dL [facility] Blood 07/11/2024 11:4 5 AM CDT 07/11/2024 11:46 AM CDT [facility] BLOOD ORDERABLES Loyda l Result [facility] [id number] [address] [id number] * CBC with auto differential (06/17/2024 3:46 PM CDT) Pathologist [facility] WBC 7.6 3.8 - 10.8 Thousand/u L [facility] RBC, POC 4.05 3.80 - 5.10 Million/uL [facility] Hgb 12.7 11.7 - 15.5 g/dL [facility] Hct 37.7 35.0 - 45.0 % [facility] MCV 93.1 80.0 - 100.0 fL [facility] MCH 31.4 27.0 - 33.0 pg [facility] MCHC 33.7 32.0 - 36.0 g/dL [facility] Comment: For adults, a slight decrease in the calculated MCHC value (in the range of 30 to 32 g/dL) is most likely not clinically significant; however, it should be interpreted with caution in correlation with other red cell parameters and the patient's clinical condition. Rdw 12.7 11.0 - 15.0 % [facility] Platelets 291 140 - 400 Thousand/u L [facility] MPV 9.8 7.5 - 12.5 fL [facility] Neutrophils, abs 5,062 1,500 - 7,800 cells/uL [facility] Lymphocytes, abs 1,611 850 - 3,900 cells/uL [facility] Monocyte abs 844 200 - 950 cells/uL [facility] Eosinophils, abs 53 15 - 500 cells/uL [facility] Basophils, abs 30 0 - 200 cells/uL [facility] Neutrophils 66.6 % [facility] Lymphocyte pct 21.2 % [facility] Monocytes 11.1 % [facility] Eosinophils 0.7 % [facility] Basophils 0.4 % [facility] Blood 06/17/2024 3:46 PM CDT 06/17/2024 3:48 PM CDT us [facility] BLOOD ORDERABLES Loyda l Result [facility] [id number] [address] [id number] * (ABNORMAL) Comprehensive metabolic panel (06/17/2024 3:46 PM CDT) Glucose 100(H) 65 - 99 mg/dL [facility] Comment: Fasting reference interval For someone without known diabetes, a glucose value between 100 and 125 mg/dL is consistent with prediabetes and should be confirmed with a follow-up test. BUN 17 7 - 25 mg/dL [facility] Creatinine 1.19(H) 0.50 - 0.99 mg/dL [facility] eGFR 58(L) > OR = 60 mL/min/1.7 3m2 [facility] BUN/creat ratio 14 6 - 22 (calc) [facility] Sodium 137 135 - 146 mmol/L [facility] Potassium, pl 3.5 3.5 - 5.3 mmol/L [facility] Chloride 103 98 - 110 mmol/L [facility] CO2 23 20 - 32 mmol/L [facility] Calcium 9.3 8.6 - 10.2 mg/dL [facility] Protein, sr 6.8 6.1 - 8.1 g/dL [facility] Albumin 4.3 3.6 - 5.1 g/dL [facility] GLOBULIN 2.5 1.9 - 3.7 g/dL (calc) [facility] Alb/glob ratio 1.7 1.0 - 2.5 (calc) [facility] Bilirubin, total 0.3 0.2 - 1.2 mg/dL [facility] Alk phos 51 31 - 125 U/L [facility] AST 13 10 - 30 U/L [facility] ALT (SGPT) 12 6 - 29 U/L [facility] Blood 06/17/2024 3:46 PM CDT 06/17/2024 3:48 PM CDT [facility] BLOOD ORDERABLES Loyda cassy Result [facility] [id number] [address] [phone] * Screening Mammogram Bilateral W Lizandro (04/07/2023 3:33 PM CLINICAL REVIEWER) Anatomical Region Laterality Modality Breast Bilateral Mammography Impressions 04/07/2023 3:53 PM CLINICAL REVIEWER BI-RADS ATLAS category (overall): 2 - Benign There is no mammographic evidence of malignancy. A 1 year screening mammogram is recommended. The patient has been or will be contacted. We recommend annual screening mammography for women at average risk of breast cancer beginning at age 40, based on guidelines of the [place] [employer] (ACR Practice Parameter for the Performance of Screening and Diagnostic Mammography) and [place] [employer]. For women with and elevated risk of breast cancer, please refer to the ACR Practice Parameter for specific screening recommendations. The patient will be entered into a reminder system with a target due date of 1 year for her next screening exam. Narrative 04/07/2023 3:53 PM CLINICAL REVIEWER Screening Mammogram Bilateral W Lizandro: 04/07/23 The study was acquired using full field digital technology and interpreted from soft copy. 2D digital mammographic views, as well as 3D digital tomosynthesis were performed in the CC and MLO projections. CLINICAL: Screening mammogram, encounter for. No relevant medical history has been documented for this patient. No known family history of breast cancer. COMPARISONS: 04/21/2022 Screening Mammogram Bilateral W Lizandro 04/17/2017 US Breast Left Limited 04/17/2017 Diagnostic Mammogram Bilateral W Lizandro BREAST TISSUE: The breasts have scattered areas of fibroglandular density. FINDINGS: Unchanged benign mass in the subareolar left breast. There is no new suspicious finding in either breast on mammogram. us Self Screening Mammogram IMG MAMMO PROCEDURES Fi nal Result * HEPATITIS C AB W/REFL TO HCV RNA, QN, PCR (REFL) (04/09/2018 4:04 PM CLINICAL REVIEWER) Hep C Ab NON-REACT LUÍS NON-REACT LUÍS [facility] [place] Comment: Our records indicate that you have ordered a client custom reflex order code. Only the initial test was performed because we do not have a client custom reflex testing authorization request form on file for you. Please contact a manager client support if you would like additional testing done on this patient or contact your ceramic products sales engineer to obtain a client custom reflex testing authorization request form. SIGNAL TO CUT-OFF 0.02 <1.00 [facility] [place] 04/09/2018 4:04 PM CLINICAL REVIEWER 04/09/2018 4:06 PM CLINICAL REVIEWER Narrative Resulting Agency Comment Performing Organization Information: Site ID: [id number] Name: Denisa Montenegro Address: [address] [place] [address] [place] [address] Director: Hermes Clarke D.O., TICO Cielo [facility] BLOOD ORDERABLES Loyda l Result [facility] [place] Alanis from Last 3 Months or Most Recently Relevant to Health Maintenance Insurance [facility] OPEN ACCESS [facility] Care Teams Prescription Eyeglass Maker Relationship Specialty Start Date End Date John Seay DO [address] [place] [address] PCP - General Family Medicine 06/15/23 Eduardo Chang MD [address] [place] [address] Consulting Physician Rheumatology 05/04/18
--- OUTSIDE RECORDS SUMMARY | 2024-08-21 01:04 | XMS_ITS | Clinical Summary ---
Author Organization [facility] Address [address] [place] [address] Phone Care Team Providers Care Road Cutter Name Role Phone Unavailable Primary Care Provider Unavailabl e Encounters Date Type Department Care Team Description 08/16/2024 1:07 PM CDT - 08/16/2024 11:59 PM CDT Hospital Encounter [facility] Non Invasive Cardiology [address] [place] [address] Rogerio Lugo MD Discharge Disposition: Home or Self Care from Last 3 Months Social History Tobacco Use Types Packs/Day Years Used Date Smoking Tobacco: Never Assessed Comments Unknown Sex and Gender Information Value Date Recorded Sex Assigned at Not on file Legal Sex Female 12:58 PM CDT Gender Identity Not on file Sexual Orientation Not on file Plan of Treatment Health Maintenance Due Date Last Done Comments Pre-Diabetes and Diabetes Screening 1981 DTAP/TDAP/TD VACCINES (1 - Tdap) 2000 HEPATITIS B VACCINES (1 of 3 - 19+ 3-dose series) 2000 HPV/Cotest (21-29) 2002 HPV/Cotest (30-65) 06/05/2011 INFLUENZA VACCINE (#1) 2023 2, 11/09/2021, 11/25/2020, Additional history exists COVID-19 Vaccine (2023- season) 2023 10/24/2020, 05/19/2020, 04/21/2020 BREAST CANCER SCREENING 04/07/2024 04/07/19 24, 04/07/2023, 04/21/2022, Additional history exists CERVICAL CANCER SCREENING 08/28/2026 PAP SMEAR 08/28/2026 08/29/2023 HPV VACCINES Aged Out No longer eligi ble based on patient's age to complete this topic Procedures Procedure Name Priority Date/Time Associated Diagnosis Comments EKG 12-LEAD Routine 08/16/2024 1:22 PM CDT from Last 3 Months Results * EKG 12-LEAD (08/16/2024 1:22 PM CDT) 08/16/2024 1:22 PM CDT Narrative INTERFACE SYSTEM - 08/16/2024 5:34 [place] [address] Test Date: 2024-08-16 Pat Name: NYLA CARTAGENA Department: 98 Room: Gender: Female 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 : 1980 Requested By: ROGERIO LANIER Order Number: [id number] Reading MD: Norris Mena Measurements Intervals [place] Rate: 76 P: 67 [place]: 118 QRS: 50 QRSD: 70 T: 38 QT: 390 QTc: 438 Interpretive Statements Normal sinus rhythm with sinus arrhythmia Septal infarct, age undetermined Abnormal ECG No previous ECG available for comparison Electronically Signed On 08-16-2024 17:34:20 CDT by Norris Mena Procedure Note Provider, Historical - 08/16/2024 [place] [address] Test Date: 2024-08-16 Pat Name: NYLA CARTAGENA Department: 98 Room: Gender: 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
--- OUTSIDE RECORDS SUMMARY | 2024-08-21 01:04 | XMS_ITS | Clinical Summary ---
Author Organization [place] [id number] Address [address] [place] [phone] Phone Care Team Providers Care Drainage Design Coordinator Name Role Phone Eduardo Chang MD Unavailable [phone] John Seay DO Primary Care Provider + Allergies Active Allergy Reactions Criticality Noted Date [...] 07/18/2022 Assessment & Plan (01/16/2023 9:22 AM DRAMATIC COACH): Patient has continued symptoms, she will continue with CPAP at 12 cm of water pressure. I have ordered an F 30 mask. I have also provided the patient a nasal mask. DME [facility] Assessment & Plan (09/19/2022 3:55 PM CDT): I have sen to supply the patient with CPAP card set at 12 cm water pressure. The patient's DME is [facility]. Patient continue to wear CPAP at 12 cm water pressure while sleeping. Assessment & Plan (07/18/2022 8:58 AM CDT): The patient is benefiting from CPAP therapy. She has been able to be weaned off her antihypertensive medications. Her AHI still remained slightly high and I will send an order to [facility] to increase her CPAP setting to 12 cm water pressure. She will follow-up with me in 2 months. 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 Continue current treatment. Assessment & Plan (03/29/2022 3:59 PM DRAMATIC COACH): Chronic condition Not at goal Increase effexor [...] 04/05/2021 Assessment & Plan (04/05/2021 12:24 PM DRAMATIC COACH): Modified barium swallow Us thyroid DUB (dysfunctional uterine bleeding) 10/15/2020 Assessment & Plan (02/03/2021 8:31 AM DRAMATIC COACH): Saw biometric technician Will monitor Assessment & Plan (10/15/2020 8:06 AM CDT): Will see biometric technician Appointment is scheduled Hirsutism 10/15/2020 Assessment & [...] Plan (06/17/2024 1:09 PM CDT): Hepatitis negative 2019 Quant gold negative 2019 Continue routine lab monitoring Assessment & Plan (03/18/2024 1:52 PM DRAMATIC COACH): Hepatitis negative 2019 Quant gold negative 2019 [...] monitoring Assessment & Plan (03/16/2023 12:52 PM DRAMATIC COACH): Hepatitis negative 2019 Quant gold negative 2019 [...] monitoring Assessment & Plan (04/18/2022 9:21 AM DRAMATIC COACH): Hepatitis negative 2019 Quant gold negative 2019 Continue routine lab monitoring Assessment & Plan (02/14/2022 11:57 AM DRAMATIC COACH): Hepatitis negative 2019 Quant gold negative 2019 Continue routine lab monitoring Assessment & Plan (11/15/2021 12:38 PM CDT): Hepatitis negative 2019 Quant gold negative 2019 Continue routine lab monitoring Assessment & Plan (08/09/2021 12:30 PM CDT): Hepatitis negative 2019 Quant gold negative 2019 Continue routine lab monitoring Assessment & Plan (05/10/2021 8:54 AM DRAMATIC COACH): Hepatitis negative 2019 Quant gold negative 2019 Continue routine lab monitoring Assessment & Plan (03/09/2021 3:50 PM DRAMATIC COACH): Hepatitis negative 2019 Quant gold negative 2019 Continue routine lab monitoring Assessment & Plan (01/11/2021 2:44 PM DRAMATIC COACH): Hepatitis negative 2019 Continue routine lab monitoring Assessment & Plan (11/17/2020 3:39 PM CDT): Hepatitis negative 2019 Continue routine lab monitoring Assessment & Plan (08/17/2020 9:32 AM CDT): Hepatitis negative 2019 Continue routine lab monitoring Assessment & Plan (05/25/2020 1:05 PM CDT): Hepatitis negative 2019 Continue routine lab monitoring Assessment & Plan (02/24/2020 2:23 PM DRAMATIC COACH): Hepatitis negative 2019 Continue routine lab monitoring Assessment & Plan (11/25/2019 3:30 PM CDT): Hepatitis negative 2019 Continue routine lab monitoring Assessment & Plan (09/16/2019 8:56 AM CDT): Hepatitis negative 2019 Continue routine lab monitoring Right carpal tunnel syndrome 01/17/2019 Overview (01/17/2019): Added automatically from request for surgery [id number] Assessment & Plan (01/17/2019 11:16 AM DRAMATIC COACH): Will have surgery in 10 days Carpal tunnel syndrome of left wrist 12/07/2018 Overview (12/07/2018): Added automatically from request for surgery [id number] Acute non-recurrent frontal sinusitis 07/18/2018 Assessment & [...] . Assessment & Plan (01/17/2019 11:16 AM DRAMATIC COACH): omnicef 300 mg bid 1 week Prednisone 20 daiy 5 days Assessment & Plan (07/18/2018 11:49 AM CDT): omnicef 300 mg bid 1 week Migraine 07/18/2018 Assessment & Plan (04/05/2021 12:29 PM DRAMATIC COACH): Refer to neurologist Assessment & Plan (07/18/2018 [...] needed. Assessment & Plan (03/18/2024 4:42 PM DRAMATIC COACH): High cdai with a preponderance of tender [...] glucose, cataracts, glaucoma, AVN, and osteoporosis with custodial use. Advised that if she continues to [...] needed. Assessment & Plan (03/17/2023 4:50 PM DRAMATIC COACH): Cdai = 13. She does not describe [...] glucose, cataracts, glaucoma, AVN, and osteoporosis with assistant production editor use. Will otherwise continue leflunomide with Orencia [...] needed. Assessment & Plan (04/18/2022 4:21 PM DRAMATIC COACH): High cdai. No benefit with Rinvoq. At [...] needed. Assessment & Plan (03/29/2022 4:02 PM DRAMATIC COACH): Add prednisone 20 mg po daily 5 days Assessment & Plan (02/14/2022 4:34 PM DRAMATIC COACH): High cdai. Discussed consideration for changing Humira, [...] glucose, cataracts, glaucoma, AVN, and osteoporosis with custodial use. Labs as below. Follow up in [...] the injections. She follows up with a preservative filler machine operator routinely. Assessment & Plan (05/10/2021 4:19 PM DRAMATIC COACH): Low/moderate cdai, significantly improved from prior. She [...] needed. Assessment & Plan (03/09/2021 4:04 PM DRAMATIC COACH): High cdai. Pt feels that her joint complaints have only progressed since starting Enbrel in November. At this time will d/c Enbrel and instead check benefits for Humira, pt agreeable. Samples of Humira x2 given today. Continue leflunomide 20 mg daily. Labs today as below. Follow up in 2 months or sooner as needed. Assessment & Plan (02/03/2021 8:30 AM DRAMATIC COACH): Rheumatology note reviewed Assessment & Plan (01/12/2021 4:35 PM DRAMATIC COACH): High cdai. Discussed lower suspicion that the [...] glucose, cataracts, glaucoma, AVN, and osteoporosis with custodial use. Continue leflunomide 20 mg daily with [...] glucose, cataracts, glaucoma, AVN, and osteoporosis with custodial use. Will continue leflunomide 20 mg daily [...] needed. Assessment & Plan (02/24/2020 2:23 PM DRAMATIC COACH): Moderate cdai. US of her L hand [...] & Plan (09/26/2019 11:47 AM CDT): Sees Chair Mechanic Assessment & Plan (09/16/2019 8:54 AM CDT): [...] needed. Assessment & Plan (03/12/2019 12:29 PM DRAMATIC COACH): Moderate cdai with several tender joints but [...] Assessment & Plan (06/21/2018 4:29 PM CDT): 36Bradley presents for evaluation of diffuse [...] Assessment & Plan (05/21/2018 4:45 PM CDT): 36Bradley presents for evaluation of diffuse [...] HTN, increase blood glucose and osteopenia with custodial use of steroids. Recheck labs today. Follow up in 1 month. Assessment & Plan (04/23/2018 4:47 PM DRAMATIC COACH): Jose Armando presents for evaluation of diffuse myalgias, muscle [...] effect. Assessment & Plan (04/09/2018 3:55 PM DRAMATIC COACH): 36Bradley presents for evaluation of diffuse myalgias, [...] prn. Assessment & Plan (03/18/2024 4:43 PM DRAMATIC COACH): Tapered off Lyrica last year due to [...] regularly. Assessment & Plan (03/17/2023 4:51 PM DRAMATIC COACH): On Lyrica 225 mg bid and tizanidine [...] regularly. Assessment & Plan (04/18/2022 9:21 AM DRAMATIC COACH): On Lyrica 225 mg bid and tizanidine 4 mg prn, additional options limited, will continue. Continue tens unit prn. Encouraged to exercise regularly. Assessment & Plan (02/14/2022 4:35 PM DRAMATIC COACH): On Lyrica 225 mg bid and tizanidine [...] lyrica Assessment & Plan (02/03/2021 8:28 AM DRAMATIC COACH): She is on the amitriptyline 75 mg. [...] 07/27/2017 Assessment & Plan (01/16/2023 9:21 AM DRAMATIC COACH): Due to the continued fatigue, I have [...] worsening Assessment & Plan (04/05/2021 12:25 PM DRAMATIC COACH): Cbc Chem 7 tsh Free t4 Assessment & Plan (10/24/2019 4:54 PM CDT): No new orders Assessment & Plan (09/26/2019 11:46 AM CDT): Still rough Resolved Problems Problem Noted Date Diagnosed Date Resolved Date Snoring 04/12/2022 07/18/2022 Assessment & Plan (04/12/2022 8:40 AM DRAMATIC COACH): The patient presents with snoring, witnessed apneas [...] daily. Assessment & Plan (04/05/2021 12:26 PM DRAMATIC COACH): Increase effexor to 75 mg Hematochezia 10/15/2020 05/20/2021 Assessment & Plan (02/03/2021 8:31 AM DRAMATIC COACH): Saw Carmen Had a colonoscopy Told normal Assessment & Plan (10/15/2020 8:07 AM CDT): Past few weeks with every bowel movement Check a cbc See Carmen Cellulitis 02/04/2020 05/20/2021 Assessment & Plan (02/04/2020 2:33 PM DRAMATIC COACH): Cleocin 300m g 10 days Update 48 hr Call if worse Fibromyalgia 04/23/2018 05/20/2021 Overview (09/16/2019): Gabapentin Apr 2018 - Oct 2018 Lyrica Oct 2018 Assessment & Plan (05/10/2021 8:54 AM DRAMATIC COACH): Stable. On Lyrica 225 mg bid and tizanidine 4 mg prn with some benefit, will continue. Continue tens unit prn. Encouraged to exercise regularly. Assessment & Plan (03/09/2021 3:51 PM DRAMATIC COACH): Stable. On Lyrica 225 mg bid and tizanidine 4 mg prn with some benefit, will continue. Continue tens unit prn. Encouraged to exercise regularly. Assessment & Plan (01/12/2021 4:34 PM DRAMATIC COACH): Limited treatment options at this point. On [...] future. Assessment & Plan (02/24/2020 4:28 PM DRAMATIC COACH): I suspect that this is causing the [...] needed. Assessment & Plan (03/11/2019 1:04 PM DRAMATIC COACH): Improved with Lyrica 225 mg bid, will [...] month. Assessment & Plan (04/23/2018 4:48 PM DRAMATIC COACH): Patient with widespread pain and tenderness on [...] 04/05/2021 Assessment & Plan (02/03/2021 8:29 AM DRAMATIC COACH): I believe she can stop the amitriptyline [...] AM CDT): Wean pristiq Start elavil 10 Encounters Date Type Department Care Team Description 06/18/2024 Results Follow-Up [facility] [address] [place] [phone] Cielo Patel PA CBC with auto differential, Comprehensive metabolic panel, Basic metabolic panel 06/17/2024 3:30 PM CDT Office Visit [facility] [address] [place] [phone] Cielo Patel PA Seronegative rheumatoid arthritis (HCC) (Primary Dx); Fibromyalgia; Encounter for medication monitoring from Last 3 Months Immunizations Immunization Administration Dates Next Due Influenza, Quadrivalent, Spl it, Preservative Free, Intramuscular 11/10/2021,11/09/2021,11/25/2020,10/26,12/29/2018 Moderna SARS-CoV-2 Monovalen t Vaccination (12+ YRS) 10/24/2020,05/19/2020,04/21/2020 Surgical History Surgery Date Site/Laterality Comments LITHOTRIPSY 03/06/2007 - 03/05/2008 CHOLECYSTECTOMY 03/06/2002 - 03/05/2003 CERVICAL DISC SURGERY 03/06/2007 - 03/05/2008 disc replacement CERVICAL BIOPSY W/ LOOP ELECTRODE EXCISION 03/06/2000 - 03/05/2001 CARPAL TUNNEL RELEASE 01/03/2019 Left JOINT REPLACEMENT 2007 SPINE SURGERY 2007 Medical History Medical History Date Comments Depression Fibromyalgia PONV (postoperative nausea a nd vomiting) Motion sickness Seasonal allergies Acne URI (upper respiratory infection) 01/13/2019 2 weeks prior, TX with steroid and antibiotic--now resolved Rheumatoid arthritis (HCC) SHAYNE (obstructive sleep apnea) 07/18/2022 GERD (gastroesophageal reflux disease) Anxiety Migraines Autoimmune disease Kidney stone Family History Medical History Relation Name Comments No Known Problems Brother Heart disease Father Soraida Ohara III Hypertension Father Soraida Ohara III Skin cancer Father Soraida Ohara III Kidney disease Maternal Grandmother Osiris Mancera Arthritis Mother Radha Ohara Depression Mother Radha Ohara Diabetes Mother Radha Ohara Cancer Paternal Grandfather Soraida Ohara Jr ADD / ADHD Son 1 2 Learning disabilities Son 2 Jordan Homeyer Developmental delay Son 3 True Homeyer Learning disabilities Son 3 True Homeyer Learning disabilities Son 4 [facility] Relation Name Status Comments Brother Alive Father Soraida Ohara III Alive Maternal Grandmother Osiris Mancera Mother Radha Ohara Alive Paternal Grandfather Soraida Ohara Jr Son 1 2 Alive Son 2 Jordan Homeyer Alive Son 3 True Homeyer Son 4 [facility] Social History Tobacco Use Types Packs/Day Years [...] on file Legal Sex Female 5:32 AM DRAMATIC COACH Gender Identity Female 10/24/2019 3:24 PM CDT Sexual Orientation Straight 12/03/2018 7: 01 AM CDT Obstetrics History Para Term AB IAB SAB Ectopic Multiple Livin g Live Births 3 3 3 Date Outcome GA Total Labor Labor/2nd/3rd Weight Sex Type Anes PTL Mylene A1 A5 Name Clin Term Term Term Last Filed Vital Signs Vital Sign Reading Time Taken Comments Blood Pressure 162/84 06/17/2024 3:31 PM CDT Pulse 82 06/17/2024 3:31 PM CDT Temperature 35.6 C (96 F) 01/16/2023 8:30 AM DRAMATIC COACH Respiratory Rate 18 01/16/2023 8:30 AM DRAMATIC COACH Oxygen Saturation 98% 06/17/2024 3:31 PM CDT Inhaled Oxygen Concentration - - Weight 70.2 kg (154 lb 12.8 oz) 06/17/2024 3:31 PM CDT Height 162.6 cm (5' 4) 06/17/2024 3:31 PM CDT Body Mass Index 26.57 06/17/2024 3:31 PM CDT Plan of Treatment Health Maintenance Due Date Last Done Comments Cervical Cancer Screening 1981 DTaP/Tdap/Td Vaccine (1 - Tdap) 1992 Varicella Vaccines (1 of 2 - 13+ 2-dose series) 1994 Hepatitis B Screening 06/05/1999 Regular Well Visit/Exam 18-64 08/31/2022 08/31/2021, 08/31/2021, 08/04/2020 Covid-19 Vaccine (4 - 2024-25 season) 2023 10/24/2020, 05/19/2020, 04/21/2020 Depression Screening 11/12/2023 11/11/2022, 07/11/2022, 05/20/2021, Additional history exists Breast Cancer Screening-Mammogram 04/07/2024 04/07/2023, 04/21/2022, 04/17/2017 Influenza Vaccine (Season Ended) 2024 11/10/2022, 11/10/2021, 11/09/2021, Additional history exists Hepatitis C Screening Completed 04/09/2018 HPV Vaccines Aged Out No longer eligi ble based on patient's age to complete this topic Pneumococcal vaccine <65 Aged Out No longer eligible based on patient's age to complete [...] Read Routine (OP Routine) 04/07/2023 3:33 PM DRAMATIC COACH Screening mammogram, encounter for HEPATITIS C AB W/REFL TO HCV RNA, QN, PCR (REFL) Routine 04/09/2018 4:04 PM DRAMATIC COACH from Last 3 Months or Most Recently [...] 5 AM CDT 07/11/2024 11:46 AM CDT us Cielo [facility] BLOOD ORDERABLES Loyda l Result [facility] [address] [place] [address] * CBC with auto differential (06/17/2024 3:46 PM CDT) Pathologist [facility] WBC 7.6 3.8 - 10.8 Thousand/u L [...] BLOOD ORDERABLES Loyda l Result [facility] [address] [place] [address] * (ABNORMAL) Comprehensive metabolic panel (06/17/2024 3:46 [...] CDT Cielo [facility] BLOOD ORDERABLES Loyda madera Result [facility] [address] [place] [phone] * Screening Mammogram Bilateral W Lizandro (04/07/2023 3:33 PM DRAMATIC COACH) Anatomical Region Laterality Modality Breast Bilateral Mammography Impressions 04/07/2023 3:53 PM DRAMATIC COACH BI-RADS ATLAS category (overall): 2 - Benign There is no mammographic evidence of malignancy. A 1 year screening mammogram is recommended. The patient has been or will be contacted. We recommend annual screening mammography for women at average risk of breast cancer beginning at age 40, based on guidelines of the [place] [employer] (ACR Practice Parameter for the Performance of Screening and Diagnostic Mammography) and [place] [employer]. For women with and elevated risk of breast cancer, please refer to the ACR Practice Parameter for specific screening recommendations. The patient will be entered into a reminder system with a target due date of 1 year for her next screening exam. Narrative 04/07/2023 3:53 PM DRAMATIC COACH Screening Mammogram Bilateral W Lizandro: 2/2/24 The study was acquired using full field [...] RNA, QN, PCR (REFL) (04/09/2018 4:04 PM DRAMATIC COACH) Hep C Ab NON-REACT LUÍS NON-REACT LUÍS [facility] [place] Comment: Our records indicate that you have ordered a client custom reflex order code. Only the initial test was performed because we do not have a client custom reflex testing authorization request form on file for you. Please contact a registered client associate if you would like additional testing done on this patient or contact your engineering supplies sales to obtain a client custom reflex testing authorization request form. SIGNAL TO CUT-OFF 0.02 <1.00 [facility] [place] 04/09/2018 4:04 PM DRAMATIC COACH 04/09/2018 4:06 PM DRAMATIC COACH Narrative Resulting Agency Comment Performing Organization Information: Site ID: [id number] Name: Denisa [facility] Address: [address] [facility] [place] [address] Director: Hermes Clarke D.O., MPH Cielo [facility] BLOOD ORDERABLES Loyda madera Result [facility] [place] Alanis from Last 3 Months or Most Recently Relevant to Health Maintenance Insurance [employer] [facility] [employer] [place] Care Teams Drainage Design Coordinator Relationship Specialty Start Date End Date John Seay DO [address] [place] [address] PCP - General Family Medicine 06/15/23 Eduardo Chang MD [address] [place] [address] Consulting Physician Rheumatology 05/04/18
--- OUTSIDE RECORDS SUMMARY | 2024-08-21 01:04 | XMS_ITS | Data Portability ---
[facility] [address] [facility] [place] [address] Assessment No assessment recorded. Plan of Treatment Reminders Order Date Submit Date Provider Last Modified By Organization Details Last Modified Time Details Appointments NEW PATIENT 15 2024 10:00A Gregory Ambrose MD Not available Not available Not available ANY 15 2025 03:45P Gregory Seay, DO Not available Not available Not available Lab BMP, serum or plasma 2023 024 [facility], [address], [facility] [address], [address], 07/23/2023 11:18:42 CBC 2023 024 [email or web address] [facility], [address] [facility], [place], [address], 07/13/2023 16:39:26 amylase, serum or plasma 2023 024 [facility], [address], [place], [address], 07/13/2023 16:39:26 hepatic function panel, serum 2023 024 [facility], [address] [facility], [place], [address], 07/13/2023 16:39:26 Referral gynecolog ist referral 2023 024 [email or web address] [facility], [address] [facility], [place], [address], 07/13/2023 16:39:26 Procedures None recorded. Surgeries None recorded. Imaging CT, abdomen + pelvis, w/ contrast - hx of kidney stones 2023 024 [facility] Scheduling, [facility] [address], 09/20/2023 01:50:04 Medication Orders bupropion HCl XL 150 mg 24 hr tablet, extended release 2024 025 [email or web address] [id number], [address] [place], [address], 04/03/2024 17:02:14 Lunesta 2 mg tablet 2024 025 SPARKS [id number], [address] [place], [address], 04/03/2024 18:56:14 cefadroxi l 500 mg capsule 2023 024 DAVID [facility], [address] [place], [address], 12/15/2023 11:08:19 amlodipin e 5 mg tablet 2023 024 [email or web address] [facility] [address], [address] [place], [address], 08/28/2023 17:56:58 Wellbutri n XL 150 mg 24 hr tablet, extended release 2023 024 [email or web address] [id number], [address] [place], [address], 07/13/2023 16:39:26 Patient TargetsNo targets recorded. 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4 g/dL 12.0-1 6.0 Not Available [facility] (Lab) [place], [address], 07/13/2023 16:04:00 07/13/19 24 07/13/2023 CBC WITH DIFF hematocrit 41.0 % 38.0-4 8.0 Not Available [facility] (Lab) [place], [address], 07/13/2023 16:04:00 07/13/19 24 07/13/2023 CBC WITH DIFF MCV 94.3 fL 81.0-9 9.0 Not Available [facility] (Lab) [address] [facility], [place], [address], 07/13/2023 16:04:00 07/13/19 24 07/13/2023 CBC WITH DIFF MCH 30.8 pg 27.0-3 1.0 Not Available [facility] (Lab) [address] [facility], [place], [address], 07/13/2023 16:04:00 07/13/19 24 07/13/2023 CBC WITH DIFF MCHC 32.7 g/dL 32.0-3 6.0 Not Available [facility] (Lab) [address] [facility], [place], [address], 07/13/2023 16:04:00 07/13/19 24 07/13/2023 CBC WITH DIFF RDW 12.5 % 11.5-1 4.5 Not Available [facility] (Lab) [address] [facility], [place], [address], 07/13/2023 16:04:00 07/13/19 24 07/13/2023 CBC WITH DIFF platelet count 261 x10'3 /uL 130-40 0 Not Available [facility] (Lab) [address] [facility], [place], [address], 07/13/2023 16:04:00 07/13/19 24 07/13/2023 CBC WITH DIFF MPV 10.4 fL 9.3-12 .2 Not Available [facility] (Lab) [address] [facility], [place], [address], 07/13/2023 16:04:00 07/13/19 24 07/13/2023 CBC WITH DIFF diff type AUTOMA MELISSA DIFFER ENTIAL Not Available [facility] (Lab) [address] [facility], [place], [address], 07/13/2023 16:04:00 07/13/19 24 07/13/2023 CBC WITH DIFF neutrophils 57.3 % Not Available [facility] (Lab) [address], [place], [address], 07/13/2023 16:04:00 07/13/19 24 07/13/2023 CBC WITH DIFF lymphocytes 31.4 % Not Available [facility] (Lab) [address] [facility], [place], [address], 07/13/2023 16:04:00 07/13/19 24 07/13/2023 CBC WITH DIFF monocytes 10.0 % Not Available [facility] (Lab) [address] [facility] [place], [address], 07/13/2023 16:04:00 07/13/19 24 07/13/2023 CBC WITH DIFF eosinophils 0.6 % Not Available [facility] (Lab) [address] [facility], [place], [address], 07/13/2023 16:04:00 07/13/19 24 07/13/2023 CBC WITH DIFF basophils 0.5 % Not Available [facility] (Lab) [address] [facility] [place], [address], 07/13/2023 16:04:00 07/13/19 24 07/13/2023 CBC WITH DIFF immature granulocytes 0.2 % Not Available [facility] (Lab) [place], [address], 07/13/2023 16:04:00 07/13/19 24 07/13/2023 CBC WITH DIFF abs. neutrophils 3.67 x10'3 /uL 1.80-7 .70 Not Available [facility] (Lab) [place], [address], 07/13/2023 16:04:00 07/13/19 24 07/13/2023 CBC WITH DIFF abs. lymphocytes 2.01 x10'3 /uL 1.00-4 .80 Not Available [facility] (Lab) [place], [address], 07/13/2023 16:04:00 07/13/19 24 07/13/2023 CBC WITH DIFF abs. monocytes 0.64 x10'3 /uL 0.24-0 .86 Not Available [facility] (Lab) [place], [address], 07/13/2023 16:04:00 07/13/19 24 07/13/2023 CBC WITH DIFF abs. eosinophils 0.04 x10'3 /uL 0.04-0 .36 Not Available [facility] (Lab) [place], [address], 07/13/2023 16:04:00 07/13/19 24 07/13/2023 CBC WITH DIFF abs. basophils 0.03 x10'3 /uL 0.01-0 .08 Not Available [facility] (Lab) [place], [address], 07/13/2023 16:04:00 07/13/19 24 07/13/2023 CBC WITH DIFF abs. immature grans 0.01 x10'3 /uL 0.00-0 .49 Not Available [facility] (Lab) [place], [address], 07/13/2023 16:04:00 07/13/19 24 07/13/2023 AMYLA SE amylase 104 units /L 25-115 Not Available [facility] (Lab) [address], [place], [address], 07/13/2023 16:29:15 07/13/19 24 07/13/2023 LIVER PANEL total protein 7.2 g/dL 6.4-8. 2 Not Available [facility] (Lab) [address], [place], [address], 07/13/2023 16:29:17 07/13/19 24 07/13/2023 LIVER PANEL albumin 3.6 g/dL 3.4-5. 0 Not Available [facility] (Lab) [address], [place], [address], 07/13/2023 16:29:17 07/13/19 24 07/13/2023 LIVER PANEL total bilirubin 0.4 mg/dL 0.2-1. 2 THIS ASSAY IS NOT RECOM MALIHA D FOR PATIE NTS UNDER GOING TREAT MENT WITH ELTRO MBOPA G DUE TO THE POTEN TIAL FOR FALSE LY ELEVA MELISSA RESUL TS. Not Available [facility] (Lab) [address], [place], [address], 07/13/2023 16:29:17 07/13/19 24 07/13/2023 LIVER PANEL direct bilirubin 0.1 mg/dL 0.0-0. 20 Not Available [facility] (Lab) [address], [place], [address], 07/13/2023 16:29:17 07/13/19 24 07/13/2023 LIVER PANEL indirect bilirubin 0.3 mg/dL 0.0-0. 9 Not Available [facility] (Lab) [address], [place], [address], 07/13/2023 16:29:17 07/13/19 24 07/13/2023 LIVER PANEL alk phosphatase 46 U/L 50-136 low Not Available [facility] (Lab) [place], [address], 07/13/2023 16:29:17 07/13/19 24 07/13/2023 LIVER PANEL AST 20 U/L 15-37 Not Available [facility] (Lab) [place], [address], 07/13/2023 16:29:17 07/13/19 24 07/13/2023 LIVER PANEL ALT 25 U/L 14-55 Not Available [facility] (Lab) [address], [place], [address], 07/13/2023 16:29:17 07/13/19 24 07/13/2023 LIVER PANEL A:g ratio 1.0 ratio 1.0-2. 0 Not Available [facility] (Lab) [place], [address], 07/13/2023 16:29:17 07/22/19 24 07/23/2023 BASIC METAB OLIC PANEL glucose 83 mg/dL 65-99 normal Fasti ng refer ence inter candace Not Available [address] [place], [address], 07/23/2023 11:18:42 07/22/19 24 07/23/2023 BASIC METAB OLIC PANEL urea nitrogen (BUN) 16 mg/dL 7-25 normal Not Available [facility] [address] [address] [place], [address], 07/23/2023 11:18:42 07/22/19 24 07/23/2023 BASIC METAB OLIC PANEL creatinine 0.74 mg/dL 0.50-0 .99 normal Not Available [facility] [address] [place], [address], 07/23/2023 11:18:42 07/22/19 24 07/23/2023 BASIC METAB OLIC PANEL eGFR 104 mL/mi n/1.7 3m2 > or = 60 normal Not Available [address], [address], 07/23/2023 11:18:42 07/22/19 24 07/23/2023 BASIC METAB OLIC PANEL BUN/creatini ne ratio SEE NOTE: (calc ) 6-22 Not Repor emlissa: BUN and Creat inine are withi n refer ence range . Not Available [address], [address], 07/23/2023 11:18:42 07/22/19 24 07/23/2023 BASIC METAB OLIC PANEL sodium 141 mmol/ L 135-14 6 normal Not Available [address], [address], 07/23/2023 11:18:42 07/22/19 24 07/23/2023 BASIC METAB OLIC PANEL potassium 4.0 mmol/ L 3.5-5. 3 normal Not Available [address], [address], 07/23/2023 11:18:42 07/22/19 24 07/23/2023 BASIC METAB OLIC PANEL chloride 105 mmol/ L 98-110 normal Not Available [address], [address], 07/23/2023 11:18:42 07/22/19 24 07/23/2023 BASIC METAB OLIC PANEL carbon dioxide 27 mmol/ L 20-32 normal Not Available [address], [address], 07/23/2023 11:18:42 07/22/19 24 07/23/2023 BASIC METAB OLIC PANEL calcium 9.5 mg/dL 8.6-10 .2 normal Not Available [facility] [address], [place], [address], 07/23/2023 11:18:42 09/12/19 24 09/12/2023 Chori ogona dotro pin.b eta subun it [Unit s/vol ume] in Serum or Plasm a B-HCG <0.2 B-HCG Not Available Not Availa ble 04/29/2024 10:56:21 07/13/19 CT, abdom en + pelvi s, w/ contr ast [facility] [place] [address] EXAMIN ATION: CT Abdome n and Pelvis with contra st ACCESS ION: [id number] EXAM DATE/T JIMBO: 07/13/19 24 1:25 PM REASON FOR EXAM: unspec ified abdomi nal pain COMPAR YESSY: None TECHNI QUE: Comput ed tomogr aphy of the abdome n and pelvis was obtain ed after admini strati on of 100 mL Isovue -[address] Sagitt al and bosch l recons tructi on. A dose loweri ng techni que was used for this proced ure, which may includ e, but is not limite d to, dose reduct ion techni que, automa melissa exposu re contro l, iterat kartik recons tructi on, ALARA (As Low As Reason ably Achiev able), or Image Gently techni ques. FINDIN GS: CT ABDOME N: Visual ized portio ns of the lung bases demons trate no acute abnorm ality. No signif icant hiatal hernia . The liver is normal in size. No signif icant focal intrah epatic lesion . The gallbl adder is surgic ally absent . There is no biliar y duct dilata tion. The spleen and the pancre as are unrema rkable . Normal right adrena l gland. There is an approx imatel y 2 cm indete rminat e left adrena l lesion is well-c ircums cribed and very low attenu ation favori ng benign adrena l adenom a etiolo gy. Kidney s demons trate no eviden ce of abnorm al striat ed nephro gram nor acute perire nal inflam matory strand ing or fluid. There is no eviden ce of ureter al stone nor hydron ephros is on outsid e. No eviden ce of signif icant solid renal enhanc ing mass lesion . There is no acute inflam matory change , absces s or ascite s. Bowel gas patter n sugges ts diffus e ileus. No eviden ce of mechan ical bowel obstru ction nor perfor ation. No signif icant lympha denopa thy. Abdomi nal aorta and IVC are unrema rkable . CT PELVIS : No signif icant pelvic mass nor adenop athy. No acute inflam matory change , absces s or ascite s. =====I MPRESS ION:== === 1. No acute inflam matory change , absces s or ascite s. 2. No eviden ce of mechan ical bowel obstru ction nor perfor ation. Bowel gas patter n is ileus. 3. No eviden ce of ureter al stone nor hydron ephros is on either side. 4. Techni joanie indete rminat e 2 cm circum scribe d low-de nsity left adrena l nodule . The appear ance favors benign adrena l adenom a althou gh other etiolo gies cannot be exclud ed. Correl ation with follow -up pre and post IV contra st CT adrena l protoc ol would be recomm ended for furthe r evalua tion. ====== ====== ====== === Ordere d By: ABDULKADIR STRAUSS [facility] onical ly Signed By: Geena mccord MD on 07/13/19 2:52 PM Interp reted By: Geena mccord MD, 07/13/19 2:46 PM [facility] Scheduling [address] [facility], [place], [address], 09/20/2023 01:50:04 07/23/[address], adren al, w/ wo contr ast [facility] [place] [address] Examin ation: CT ABD WWO CON Clinic al histor y: Pain, adrena l mass Compar yessy: 07/13/19 24 DATE/T JIMBO: 024 2:19 PM Techni que: Multip lanar images of the abdome n were obtain ed accord ing to multip hasic adrena l protoc ol prior to and follow ing the uneven tful intrav enous admini strati on of 100 mL Omnipa que 350. A dose loweri ng techni que was used for this proced ure, which may includ e, but is not limite d to, dose reduct ion techni que, automa melissa exposu re contro l, the use of iterat kartik recons tructi on, and ALARA (As Low As Reason ably Achiev able) / Image Gently techni ques. Findin gs: There is a round left adrena l mass measur ing 2.1 x 2.1 x 2.1 cm. This is homoge neousl y low densit y, measur ing 9 Hounsf ield units on noncon trast imagin g, 22 Hounsf ield units on early postco ntrast imagin g and 18 Hounsf ield units on delaye d imagin g. Althou gh the washou t charac terist ics are indete rminan t, the intrin sic low-de nsity on noncon trast imagin g is highly specif ic for adenom a. No routin e follow -up necess shikha for adenom as of this size per consen marvin criter ia. Right adrena l gland is negati ve. Modera te right hydron ephros is and mild left renal pelvie ctasis , more pronou nced than on the prior exam. The [facility] ting system dilata tion on the right side increa ses on delaye d imagin g. This is of uncert ain etiolo gy. No renal stones are identi fied. Please note that the pelvis is not includ ed within the field- of-vie w of this dedica melissa abdomi nal examin ation, and the distal ureter s, bladde r and other pelvic struct ures cannot theref ore be evalua melissa. Includ ed GI tract appear s unrema rkable . Liver is negati ve. Spleen is negati ve. Pancre as is negati ve. Gallbl adder is absent . No bile duct dilata tion. Abdomi nal aorta is normal calibe r. No intra- abdomi nal lympha denopa thy identi fied. No acute osseou s abnorm ality. IMPRES LUIS: 1. There is a 2.1 cm left adrena l mass, with densit y charac terist ics typica l of adenom a. 2. Mild to modera te right hydron ephros is, uncert ain etiolo gy/sig nifica nce. Referr ed By: ABDULKADIR STRAUSS Electr onical ly Signed By: Frank Helton MD on 3:25 PM Interp reted By: Frank Helton MD, 3:15 PM [facility] Scheduling [facility], [place], [address], 09/20/2023 01:49:50 08/06/19 25 US, kidne y [facility] ONE [facility] [place] [address] [facility] [place] [address] 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 Histor y of kidney stones . COMPAR YESSY: CT . TECHNI QUE: Graysc christianne and color Dopple r images of the kidney s and urinar y bladde r were obtain ed. FINDIN GS: The right kidney measur es 12 cm in length and demons trates normal parenc hymal echoge nicity and cortic al thickn ess.Mo derate hydron ephros is. No echoge skip stone or cortic ally based mass. The left kidney measur es 12.2 cm in length and demons trates normal parenc hymal echoge nicity and cortic al thickn ess. No left renal mass, stone or hydron ephros is identi fied. Incide ntally noted 2.2 cm left adrena l nodule , correl ating with prior CT. The urinar y bladde r appear s unrema rkable . The left ureter al jet is presen t. The right ureter al jet was not seen. IMPRES LUIS: 1. Modera te right hydron ephros is. The right ureter al jet was not seen. Consid er unenha nced CT of the abdome n and pelvis to assess for obstru cting ureter al stone 2. The left kidney appear s unrema rkable . 3. Incide ntally noted 2.2 cm left adrena l nodule , correl ating with prior CT. Referr ed By: ABDULKADIR STRAUSS [facility] onical ly Signed By: Arianna Farley MD on 08/06/19 3:55 AM Interp reted By: Arianna Farley MD, 08/06/19 3:51 AM [facility] [place], [address], 08/19/2024 16:47:18 Result Notes Documentation Provider Name and Address Organization Details Recorded Time Ct, Abdomen + Pelvis, W/ Contrast : [place] [address] EXAMINATION: CT Abdomen and Pelvis with contrast EXAM DATE/TIME: 07/13/2023 1:25 PM REASON FOR EXAM: unspecified abdominal pain COMPARISON: None TECHNIQUE: Computed tomography of the abdomen and pelvis was obtained after administration of 100 mL Isovue-370 intravenous contrast. Sagittal and coronal reconstruction. A dose lowering technique was used for this procedure, which may include, but is not limited to, dose reduction technique, automated exposure control, iterative reconstruction, ALARA (As Low As Reasonably Achievable), or Image Gently techniques. FINDINGS: CT ABDOMEN: Visualized portions of the lung bases demonstrate no acute abnormality. No significant hiatal hernia. The liver is normal in size. No significant focal intrahepatic lesion. The gallbladder is surgically absent. There is no biliary duct dilatation. The spleen and the pancreas are unremarkable. Normal right adrenal gland. There is an approximately 2 cm indeterminate left adrenal lesion is well-circumscribed and very low attenuation favoring benign adrenal adenoma etiology. Kidneys demonstrate no evidence of abnormal striated nephrogram nor acute perirenal inflammatory stranding or fluid. There is no evidence of ureteral stone nor hydronephrosis on outside. No evidence of significant solid renal enhancing mass lesion. There is no acute inflammatory change, abscess or ascites. Bowel gas pattern suggests diffuse ileus. No evidence of mechanical bowel obstruction nor perforation. No significant lymphadenopathy. Abdominal aorta and IVC are unremarkable. CT PELVIS: No significant pelvic mass nor adenopathy. No acute inflammatory change, abscess or ascites. =====IMPRESSION:===== 1. No acute inflammatory change, abscess or ascites. 2. No evidence of mechanical bowel obstruction nor perforation. Bowel gas pattern is ileus. 3. No evidence of ureteral stone nor hydronephrosis on either side. 4. Technically indeterminate 2 cm circumscribed low-density left adrenal nodule. The appearance favors benign adrenal adenoma although other etiologies cannot be excluded. Correlation with follow-up pre and post IV contrast CT adrenal protocol would be recommended for further evaluation. Ordered By: ABDULKADIR STRAUSS Interpreted By: Jorge Harrison MD, 07/13/2023 2:46 PM Frances Conroy MA [facility] 09/20/2023 01:50:04 Ct, Adrenal, W/ Wo Contrast : [facility] [place] [address] Examination: CT ABD WWO CON Clinical history: Pain, adrenal mass Comparison: 07/13/2023 DATE/TIME: 07/21/2023 2:19 PM Technique: Multiplanar images of the abdomen were obtained according to multiphasic adrenal protocol prior to and following the uneventful intravenous administration of 100 mL Omnipaque 350. A dose lowering technique was used for this procedure, which may include, but is not limited to, dose reduction technique, automated exposure control, the use of iterative reconstruction, and ALARA (As Low As Reasonably Achievable) / Image Gently techniques. Findings: There is a round left adrenal mass measuring 2.1 x 2.1 x 2.1 cm. This is homogeneously low density, measuring 9 Hounsfield units on noncontrast imaging, 22 Hounsfield units on early postcontrast imaging and 18 Hounsfield units on delayed imaging. Although the washout characteristics are indeterminant, the intrinsic low-density on noncontrast imaging is highly specific for adenoma. No routine follow-up necessary for adenomas of this size per consensus criteria. Right adrenal gland is negative. Moderate right hydronephrosis and mild left renal pelviectasis, more pronounced than on the prior exam. The collecting system dilatation on the right side increases on delayed imaging. This is of uncertain etiology. No renal stones are identified. Please note that the pelvis is not included within the [id number] of this dedicated abdominal examination, and the distal ureters, bladder and other pelvic structures cannot therefore be evaluated. Included GI tract appears unremarkable. Liver is negative. Spleen is negative. Pancreas is negative. Gallbladder is absent. No bile duct dilatation. Abdominal aorta is normal caliber. No intra-abdominal lymphadenopathy identified. No acute osseous abnormality. IMPRESSION: 1. There is a 2.1 cm left adrenal mass, with density characteristics typical of adenoma. 2. Mild to moderate right hydronephrosis, uncertain etiology/significance. Referred By: ABDULKADIR STRAUSS Interpreted By: Frank Helton MD, 07/23/2023 3:15 PM Frances Conroy MA [facility], [place] - [place] 09/20/2023 01:49:50 Problems Name Problem SNOMED Code Status Onset Date Resolution Date Notes Provider Name and Address Organization Details Recorded Time Rheumatoid arthritis 74845978 Active 2023 Abdulkadir Seay DO Attn: Madelaine wolf,[address] [place], [address], [facility] 4 08:11:26 Adult attention deficit hyperactivi ty disorder 133508580 Active 2023 Abdulkadir Seay DO Attn: Madelaine wolf,[address] [facility], [place], [address], [facility] 4 08:11:27 Fibromyalgi a 786241176 Active 2023 Abdulkadir Seay DO Attn: Madelaine wolf,[address] [facility], [place], [address], [place] [facility] 4 08:11:28 Migraine 98020442 Active 2023 Abdulkadir Seay DO Attn: Madelaine wolf,[address] [facility], [place], [address], [place] [facility] 4 08:11:30 Depressive disorder 02176006 Active 2023 Abdulkadir Seay DO Attn: Madelaine wolf,[address] [facility], [place], [address], [place] [facility] 4 08:11:31 Obstructive sleep apnea syndrome 16383188 Active 2023 Abdulkadir Seay DO Attn: Madelaine wolf,[address] [facility], [place], [address], [place] [facility] 4 08:11:32 Essential hypertensio n 48768398 Active 2023 Abdulkadir Seay DO Attn: Madelaine wolf,[address] [facility], [place], [address], [place] [facility] 4 17:28:11 Cyst of right breast [id number] 9102 Active 2023 Abdulkadir Seay DO Attn: Madelaine wolf,[address] [facility], [place], [address], [place] [facility] 4 17:50:53 Abrasion 687258007 Active 2023 Abdulkadir Seay DO Attn: Madelaine wolf,[address] [facility], [place], [address], [place] [facility] 4 17:50:54 Overweight 343267011 Active 2023 Abdulkadir Seay DO Attn: Madelaine wolf,[address] [facility], [place], [address], [place] [facility] 4 17:50:55 Problem Notes None recorded. Medical Equipment None Reported. Allergies Allergen ID Allergen Name Allergen Category Reaction Reaction Severity Criticality Documentation Date Start Date Code Code System Note Provider Name and Address Organization Details Recorded Time 517968 morphine medicatio n itching nausea severe severe high 07/13/2023 7052 RxNorm Frances ConroySERENE harlan, [place] - [facility] 4 12:30:26 Medications Name Sig Start Date Stop Date Status Note LastModified by Organization Details LastModified Time Mirena 21 mcg/24 hr (up to 8 years) 52 mg intrauterin e device Take by intrauter ine route. active Not Available Not Available No t Available venlafaxine ER 75 mg capsule,ext ended release 24 hr TAKE 1 CAPSULE BY MOUTH EVERY DAY active Not Available Not Available No t Available trazodone 50 mg tablet Take 1 tablet every day by oral route. 12/27 completed Not Available Not Available Not Available azithromyci n 250 mg tablet TAKE 2 TABLETS BY MOUTH TODAY, THEN TAKE 1 TABLET DAILY FOR 4 DAYS DIRECTED 04/03 completed Not Available Not Available Not Available tizanidine 4 mg tablet TAKE 1 TABLET BY MOUTH EVERY 6 HOURS NEEDED FOR MUSCLE SPASMS. active Not Available Not Available No t Available prednisone 20 mg tablet TAKE 1 TABLET BY MOUTH EVERY DAY 07/12 completed Not Available Not Available Not Available prednisone 5 mg tablet PLEASE SEE ATTACHED FOR DETAILED DIRECTION S 12/14 completed Not Available Not Available Not Available venlafaxine ER 150 mg capsule,ext ended release 24 hr TAKE 1 CAPSULE BY MOUTH EVERY DAY active Not Available Not Available No t Available amlodipine 5 mg tablet TAKE 1 TABLET BY MOUTH EVERY DAY 2024 active Not Available Not Available Not Avai lable leflunomide 20 mg tablet TAKE 1 TABLET BY MOUTH EVERY DAY active Not Available Not Available No t Available tramadol 50 mg tablet TAKE 1 TABLET 3 TIMES A DAY BY ORAL ROUTE. 12/14 completed Not Available Not Available Not Available cefadroxil 500 mg capsule TAKE 1 CAPSULE BY MOUTH TWICE A DAY FOR 7 DAYS 12/14 completed Not Available Not Available Not Available alprazolam 0.25 mg tablet TAKE 1 TABLET BY MOUTH TWICE A DAY active Not Available Not Available No t Available trazodone 100 mg tablet TAKE 1 TABLET BY MOUTH EVERY DAY active Not Available Not Available No t Available pantoprazol e 40 mg tablet,raffaele yed release TAKE 1 TABLET BY MOUTH TWICE A DAY 2024 active Not Available Not Available Not Avai lable buspirone 10 mg tablet TAKE 1 TABLET BY MOUTH THREE TIMES A DAY 09/24 completed Not Available Not Available Not Available diclofenac sodium 75 mg tablet,raffaele yed release TAKE 1 TABLET BY MOUTH TWICE A DAY active Not Available Not Available No t Available buspirone 15 mg tablet TAKE 1 TABLET BY MOUTH THREE TIMES A DAY active Not Available Not Available No t Available bupropion HCl XL 150 mg 24 hr tablet, extended release TAKE 1 TABLET BY MOUTH EVERY DAY active Not Available Not Available No t Available eszopiclone 2 mg tablet TAKE 1 TABLET BY MOUTH EVERY DAY 2024 active Not Available Not Available Not Avai lable pregabalin 75 mg capsule PLEASE SEE ATTACHED FOR DETAILED DIRECTION S 12/14 completed Not Available Not Available Not Available pregabalin 150 mg capsule TAKE 1 CAPSULE BY MOUTH EVERY MORNING. 12/14 completed Not Available Not Available Not Available pregabalin 225 mg capsule TAKE 1 CAPSULE (225 MG TOTAL) BY MOUTH NIGHTLY 12/14 completed Not Available Not Available Not Available Orencia ClickJect 125 mg/mL subcutaneou s auto-inject or weekly active Not Available Not Available Not Available Vitals Date Recorded Systolic blood pressure Diastolic blood pressure Provider Name and Address Organization Details Last Updated DateTime 04/03/2024 136 mm[Hg] 84 mm[Hg] Abdulkadir Seay DO Attn: Accounting,[address] [place], [address], [place] [facility] 04/03/2024 16:43:24 Date Recorded Body height Body mass index (BMI) Body weight Oxygen saturation Oxygen saturation in Arterial blood by Pulse oximetry Heart rate Provider Name and Address Organization Details Last Updated DateTime 162.56 cm 27.1 kg/m2 17854.5 9 g 95 % 95 % 86 /min Otoniel Guerra [place] - [facility] 16:00:30 Date Recorded Systolic blood pressure Diastolic blood pressure Provider Name and Address Organization Details Last Updated DateTime 07/13/2023 136 mm[Hg] 84 mm[Hg] Abdulkadir Seay DO Attn: Accounting,[address] [facility], [place], [address], [facility] 07/13/2023 12:48:27 Date Recorded Body height Body mass index (BMI) Body weight Provider Name and Address Organization Details Last Updated DateTime 07/13/2023 162.56 cm 26.1 kg/m2 66662.74 g Frances Conroy MA [facility] 07/13/2023 12:28:58 Date Recorded Systolic blood pressure Diastolic blood pressure Provider Name and Address Organization Details Last Updated DateTime 08/28/2023 138 mm[Hg] 98 mm[Hg] Abdulkadir Seay DO Attn: Accounting,[address] [facility], [place], [address], [facility] 08/28/2023 17:25:50 Date Recorded Body height Body mass index (BMI) Body weight Oxygen saturation Oxygen saturation in Arterial blood by Pulse oximetry Heart rate Provider Name and Address Organization Details Last Updated DateTime 4 162.56 cm 27.1 kg/m2 51974.9 4 g 95 % 95 % 84 /min Nayeli Akhtar MA [facility] 4 16:46:53 Date Recorded Body height Body mass index (BMI) Body weight Oxygen saturation Oxygen saturation in Arterial blood by Pulse oximetry Heart rate Provider Name and Address Organization Details Last Updated DateTime 4 162.56 cm 27.6 kg/m2 37299.9 3 g 97 % 97 % 102 /min Cookie Gee LPN [facility] 4 17:23:09 Social History Question Answer Notes LastModified by Organizat ion Details LastModified Time Tobacco Smoking Status Former Smoker Frances Conroy MA null, [facility] 07/13/2023 12:33:44 What Is Your Level Of Caffeine Consumption? Moderate Information not available 07/13/2023 What Was The Date Of Your Most Recent Tobacco Screening? 04/03/2024 [email or web address] Information not available 04/03/2024 How Much Tobacco Do You Smoke? 1 PPD Information not available 09/25/2023 Has Tobacco Cessation Counseling Been Provided? No Information not available 07/13/2023 How Many Years Have You Smoked Tobacco? 18 Information not available 09/25/2023 Sex: Unknown Functional Status Question Answer Note LastModified by Organizat ion Details LastModified Time Do you use any illicit or recreational drugs? Yes diogenes Information not available 07/13/2023 Do you or have you ever used any other forms of tobacco or nicotine? No Information not available 07/13/2023 What is your level of alcohol consumption? None Information not available 07/13/2023 Mental Status None recorded. Family History Nothing Reported. Medical History Condition Response Coronary Artery Disease N Other N Atrial Fibrillation N High Blood Pressure Y Thyroid Problems N Kidney or Bladder Problems N Depression Y COPD N Blood Clots N GI Problems N Have you had a mammogram in the last yea r? Y Skin Problems N Eating Disorder N Anemia N Heart Attack ([place]) N Diabetes N Anxiety Disorder Y Muscle, Joint, or Bone Problems N Seizures/Epilepsy N Arthritis Y Acid Reflux (GERD) N Cancer N Stroke N Allergies N Asthma N ADHD N Substance Abuse N High Cholesterol N Hepatitis N Liver Disease N Schizophrenia N Headaches Y Osteoporosis N Heart Failure N Gynecological HistoryNo gynecological history recorded. Obstetrics History GPAL:G 0 P 0 0 0 0 Immunizations Vaccine Type Date Status Note Provider Nam e and Address Organization Details Recorded Time Influenza, MDCK, quadrivalent, PF 11/10/2022 completed Janice Meyer RN null, [place] [facility] 10/26/2023 16:27:18 COVID-19, mRNA, LNP-S, PF, 100 mcg/0.5mL dose or 50 mcg/0.25mL dose 04/21/2020 completed Janice Meyer RN [place], [place] [facility] 10/26/2023 16:27:18 COVID-19, mRNA, LNP-S, PF, 100 mcg/0.5mL dose or 50 mcg/0.25mL dose 05/19/2020 kita Meyer RN [place], [place] [facility] 10/26/2023 16:27:18 COVID-19, mRNA, LNP-S, PF, 100 mcg/0.5mL dose or 50 mcg/0.25mL dose 10/24/2020 completed Janice Meyer RN null, [place] [facility] 10/26/2023 16:27:18 Influenza, split virus, quadrivalent, PF 11/09/2021 completed Janice Meyer RN null, [facility] 10/26/2023 16:27:18 Influenza, split virus, quadrivalent, PF 12/29/2018 completed Janice Meyer RN null, [facility] 10/26/2023 16:27:18 Tdap 09/25/2023 completed Abdulkadir Seay DO Attn: Accounting,[address] [place], [address], [facility] - [facility] 09/25/2023 18:11:22 Past Encounters Encounter ID Performer Location Encounter Start Date Encounter Closed Date Diagnosis/Indication Diagnosis SNOMED-CT Code Diagnosis ICD10 Code Diagnosis Note [id number] Abdulkadir Seay DO [facility] [place] [address] [place] [address] 07/13/2023 12:09:17 07/13/2023 13:30:50 Rheumatoid arthritis 72307984 M06.9 Chronic conditionS ees rheumatolo gistMultip le medication s Adult atte ntion deficit hyperactivity disorder 468461951 F90.9 Chronic conditionA t goal Fibromyalgia 472504294 M 79.7 Chronic condition Migraine 54414580 G43.90 9 Chronic conditionD iclofenac Depressive disorder 0818 1037 F32.A Chronic conditionn ot at goaladd wellbutrin xl 150 mgVenlafax ine XR 150 mgVenlafax ine XR 75 mgBuSpar Obstructiv e sleep apnea syndrome 15507191 G47.33 Chronic conditionC PAP Abdominal pain 87769434 R10.9 generalize dstarted within past weekfeels like kidney stoneswill order labwill order a ct abdomen and pelvis todayct reviewedla reviewed [id number] Abdulkadir Seay DO [facility] [place] [address] [place] [address] 08/28/2023 16:42:15 08/29/2023 12:52:25 Essential hypertension 06195483 I10 add amlodipine 5 mg dailyfollo w up 4 weeks Depressive disorder 5058 7869 F32.A Chronic conditionn ot at goaladded wellbutrin xl 150 mgVenlafax ine XR 150 mgVenlafax ine XR 75 mgBuSpar Fibromyalgia 220790636 M 79.7 Chronic condition Rheumatoid arthritis 698 46026 M06.9 Chronic conditionS ees rheumatolo gistMultip le medication s [id number] Abdulkadir Seay, DO [facility] [place] [address] [facility] [address] [place] [address] 09/25/2023 16:53:25 09/26/2023 12:21:50 Depressive disorder 59598526 F32.A Chronic condition added wellbutrin xl 150 mgVenlafax ine XR 150 mgVenlafax ine XR 75 mgBuSpar Essential hypertension 46097980 I10 added amlodipine 5 mg dailychron ic condition Obstructiv e sleep apnea syndrome 02856064 G47.33 Chronic conditionC PAP Rheumatoid arthritis 698 10012 M06.9 Chronic conditionS ees rheumatolo gistMultip le medication sdoing fairly wellreduci ng lyrica Adult atte ntion deficit hyperactivity disorder 411923879 F90.9 Chronic conditionA t goal Overweight 175757232 E66 .3 healthy dietweight losschroni c conditionn ot at goal Abrasion 494483488 T14.8 XXA right legran into chicken wireadd tetanus Cyst of right breast 315 5392021 7139279 N60.01 superficia l cyst on inferior right breastwill add duricef 500 mg bidmoist soak [id number] Abdulkadir Seay, DO [facility] [place] [address] [facility] [address] [place] [address] 04/03/2024 15:48:10 04/04/2024 10:33:27 Depressive disorder 85273276 F32.A Chronic condition added wellbutrin xl 150 mgVenlafax ine XR 150 mgVenlafax ine XR 75 mgBuSpar Essential hypertension 45125037 I10 added amlodipine 5 mg dailychron ic condition Obstructiv e sleep apnea syndrome 80657058 G47.33 Chronic conditionC PAP Overweight 041930008 E66 .3 healthy dietweight losschroni c conditionn ot at goal Rheumatoid arthritis 698 74282 M06.9 Chronic conditionS ees rheumatolo gistMultip le medication sdoing fairly wellreduci ng lyrica Adult atte ntion deficit hyperactivity disorder 034029218 F90.9 Chronic conditionA t goal Chronic insomnia 7167713 04 F51.04 add lunesta 2 mg at hs prn Health Concerns Section Related Observation LastModified by Organization Detai ls LastModified Time None Recorded Concern Status LastModified by Organization Details LastModified Time None Recorded Advance Directives Directive None Recorded Payers Insurance Date Sequence Insurance Name Policy Number Policy Ureña Covered Member ID Ureña Member ID Guarantor Name 05/27/2024 1 [employer] [id number] Nyla Homeyer [id number] Nyla Homeyer 04/03/2024 1 [facility] ([id number]) [id number] Nyla Homeyer [id number] Nyla Homeyer Notes Date Note Type Note Provider Name and Address Organization Details Recorded Time 4 text/html Establish care Abdulkadir Seay DO Attn: Accounting,[address] [facility], [place], [address], [facility] - [facility] 07/13/2023 18:58:08 4 text/html having elevated blood pressurepast few weeksworking out frequently Abdulkadir Seay DO Attn: Accounting,[address] [facility], [place], [address], [facility] - [facility] 08/28/2023 18:00:40 4 text/html routine follow upmultiple medical conditionsdepressionon venlafaxine and wellbutrinsome improvement htntaking bp [facility] been better Abdulkadir Seay DO Attn: Accounting,[address] [facility], [place], [address], [place] [facility] 09/25/2023 18:11:45 5 text/html routine 6 month follow updoing well with meds Abdulkadir Seay DO Attn: Accounting,[address] [facility], [place], [address], [facility] - [facility] 04/03/2024 18:56:15 OBGyn Episode No OBEpisode recorded.
--- OUTSIDE RECORDS SUMMARY | 2024-08-21 01:05 | XMS_ITS | Data Portability ---
Author Organization [facility] [place] Address [address] [place] [address] [place] [address] Care Team Providers Care Hand Box Folder Name Role Phone ABDULKADIR RODRIGUEZ Primary Care Provider [phone] Assessment No assessment recorded. Plan of Treatment Reminders Order Date Submit Date Provider Last Modified By Organization Details Last Modified Time Details Appointments SURG Salpingec mundo 2024 10:00A Gregory LUGO MD Not available Not available Not available SURG POST OP 2024 04:00P Gregory LUGO MD Not available Not available Not available Lab CT + NG + TV, RNA, unspecifi ed specimen 2024 025 [facility] (Lab), [address] , [place], [address], 06/13/2024 01:21:05 urinalysi s, dipstick 2024 025 [facility] [address], [place], [address], 06/10/2024 12:56:21 culture, urine 2024 025 [facility] (Lab), [address] , [place], [address], 06/13/2024 01:21:05 test, urine 2024 025 [facility], [facility] [address], [place], [address], 06/10/2024 13:24:35 Referral None recorded. Procedures None recorded. Surgeries laparosco py, surgical with fulgurati on/excisi on of lesions of the ovary/pel leigh viscera/p eritoneal surface (SURG) [address], [address], [address], 07/16/2024 12:01:49 salpingec mundo, laparosco pic (SURG) [address], [facility], [address], 08/01/2024 17:17:21 hysterosc opy, with endometri al ablation (SURG) [address], [facility], [address], 07/16/2024 11:51:29 hysterosc opy, surgical, with biopsy of endometri um and/or polypecto my (SURG) [address], [address], [address], 07/16/2024 11:52:14 Imaging US, pelvis [email or web address], [address], [place], [address], 06/13/2024 17:22:04 US, transvagi nal 2024 025 maile [place], [address], [address], [place], [address], 06/13/2024 17:22:04 US, pelvis, complete [address], [address], [place], [address], 06/17/2024 18:56:20 US, transvagi nal 2023 024 [email or web address] [place], [address], [address], [place], [address], 09/13/2023 23:04:15 Medication Orders Slynd 4 mg (28) tablet 2024 025 [id number], [address] , [place], [address], 06/10/2024 13:23:48 Mirena 21 mcg/24 hr (up to 8 years) 52 mg intrauter ine device 2023 024 [email or web address] [id number], [address] [place], [address], 07/08/2024 17:21:58 Patient TargetsNo targets recorded. Patient InstructionsNo instructions recorded. Reason for Referral None Reported. Results Created Date Observation Date Name Description Value Unit Range Abnormal Flag Note LastModifiedBy Organization Detail LastModifiedTime 08/29/19 24 08/29/2023 IMAGE GUIDE D PAP AND HPV REGAR DLESS image guided Pap, HPV regardless of Pap result SEE RESULT S BELOW CASE REPOR T: Cytol ogy Gynec ologi rosina Repor t Case: [id number] Autho raz wolf Provi abdi: Juan Manuel Lugo MD Colle cted: 08/28 1042 Order ing Locat ion: [place] Path[facility] log[facility] Recei karolina: 08/29 0131 First Scree n: Andrey Cisse, CT Speci men: Scree rui Pap - Image d, Cervi x STATE MENT OF ADEQU ACY: Satis facto ry for evalu ation Trans forma tion zone compo nent prese nt ----- ----- ----- ----- ----- ----- ----- ----- ----- ----- ----- ----- ----- ----- ----- ----- ----- ---- FINAL DIAGN OSIS: Negat kartik for Intra epith elial Lesio flex or Brian murphy (NIL) . Elect opal kilgore d by Andrey Cisse, CT on 2023 at 12:59 PM ----- ----- ----- ----- ----- ----- ----- ----- ----- ----- ----- ----- ----- ----- ----- ----- ----- ---- HPV RESUL TS: HPV mRNA E6/E7 : No HPV mRNA Detec azeb NOTE: This high risk HPV mRNA assay detec ts fourt een high- risk HPV types (16, 18, 31, 33, 35, 39, 45, 51, 52, 56, 58, 59, 66, 68) witho ut diffe renti ation . COMME NT: This speci men was revie wed by a Cytot echno logis t and/o r Patho logis t (as indic ated in this repor t) after evalu ation using the Thinp rep Imagi ng Syste m. CLINI ROSINA INFOR MATIO N: Menst rual Statu s: LMP (if appli cable ): Clini rosina Histo ry/Pr eviou s Pap: Type of Neopl octavio (if appli cable ): Signi fican t Clini rosina Findi ngs: Other Histo ry: Hormo yasmin (if appli cable ): PAP EDUCA SHAYLEE L NOTE: The Pap Test is a scree rui test with an inher ent false negat kartik rate. Liqui d-bas ed sampl ing may decre ase, but will not elimi dinora, false negat kartik resul ts. A negat kartik resul t does not precl ude the prese nce and/o r devel opmen t of disea se, since the prese nce of abnor mal cells in the sampl e depen ds on the locat ion of the lesio n and sampl ing techn ique. Sterling nued regul ar scree rui is the best metho d of cance r preve ntion . If repor azeb cytol ogic findi ng do not corre late with physi rosina and/o r histo rical findi ngs, furth er inves tigat ion is recom eric d, as clini joanie espinal nted. Not Available [facility] (Lab) [address], [place], [address], 08/31/2023 14:03:24 09/12/19 24 09/12/2023 BHCG, QUANT ITATI VE B-HCG <0.2 mIU/m L This assay was perfo rmed using [employer] ratio n reage nts and test kits. Value s obtai adrienne with other assay metho ds or kits canno t be used inter hand eably . Refer ence Range s: Non-p regna nt, preme nopau ryan women : 0.0-5 .3 mIU/m L Postm enopa usal women : 0.0-7 .0 mIU/m L Leigh l Pregn rick: Gesta shaylee l Age bHCG Conc. - mIU/m L 3 Weeks 5.8 - 71.7 4 Weeks 9.5 - 750 5 Weeks 217-7 138 6 Weeks 158 - 31,79 5 7 Weeks 3,697 - 162,5 63 8 Weeks 32,06 5 - 149,5 71 9 Weeks 63,80 3 - 151,4 10 10 Weeks 46,50 9 - 186,9 77 12 Weeks 27,83 2 - 210,6 12 14 Weeks 13,95 0 - 62,53 0 15 Weeks 12,03 9 - 70,97 1 16 Weeks 9,040 - 56,45 1 17 Weeks 8,175 - 55,86 8 18 Weeks 8,099 - 58,17 6 Not Available [facility] (Lab) [address] , [place], [address], 09/13/2023 05:47:41 06/11/19 25 06/10/2024 CT/GC AND TRICH OMONA S VAGIN ROSANNA (RRNA ), SWAB chlamydia trachomatis, PCR Negati ve negati ve Not Available [facility] (Lab) [address] [facility], [place], [address], 06/13/2024 01:21:05 06/11/19 25 06/10/2024 CT/GC AND TRICH OMONA S VAGIN ROSANNA (RRNA ), SWAB neisseria gonorrhoeae, PCR Negati ve negati ve Not Available [facility] (Lab) [address] [facility], [place], [address], 06/13/2024 01:21:05 06/11/19 25 06/10/2024 CT/GC AND TRICH OMONA S VAGIN ROSANNA (RRNA ), SWAB trichomonas vaginalis ribosomal RNA (rrna) Negati ve negati ve Not Available [facility] (Lab) [address] [facility], [place], [address], 06/13/2024 01:21:05 06/11/19 25 06/10/2024 CULTU RE: URINE result report SEE RESULT S BELOW Test: Cultu re: Urine Speci men Sourc e: Urine - Clean Catch Speci men Type: Urine Speci men Date: 025 1427 Resul t Date: 2024 0018 Resul t Statu s: Final resul t Abnor mal: No Resul ting Lab: [facility] [address] [facility] [address] Tel: CULTU RE ----- ----- ----- --- Organ ism(s ) consi stent with uroge nital or skin rajesh . Repea t cultu re if sympt oms indic ate. Not Available [facility] (Lab) [address] [facility], [place], [address], 06/13/2024 01:21:05 06/11/19 25 06/10/2024 pregn rick test, urine HCG negati ve Not Available [place] [address], [place], [address], 06/10/2024 13:24:29 06/11/19 25 06/10/2024 urina lysis , dipst ick Leukocytes ++` Not Available [facility] [address], [place], [address], 06/10/2024 12:45:41 06/11/19 25 06/10/2024 urina lysis , dipst ick Nitrite + Not Available [place] [address], [place], [address], 06/10/2024 12:45:41 06/11/19 25 06/10/2024 urina lysis , dipst ick Urobilinogen normal Not Available [facility] [address], [place], [address], 06/10/2024 12:45:41 06/11/19 25 06/10/2024 urina lysis , dipst ick Protein - Not Available [place] [address], [place], [address], 06/10/2024 12:45:41 06/11/19 25 06/10/2024 urina lysis , dipst ick pH 7 Not Available [place] [address], [place], [address], 06/10/2024 12:45:41 06/11/19 25 06/10/2024 urina lysis , dipst ick Specific [place] 1.015 Not Available [facility] br[address], [place], [address], 06/10/2024 12:45:41 06/11/19 25 06/10/2024 urina lysis , dipst ick Ketone - Not Available [place] [address], [place], [address], 06/10/2024 12:45:41 06/11/19 25 06/10/2024 urina lysis , dipst ick Bilirubin - Not Available Bobby lawrence [address], [place], [address], 06/10/2024 12:45:41 06/11/19 25 06/10/2024 urina lysis , dipst ick Glucose normal Not Available [place] [address], [place], [address], 06/10/2024 12:45:41 06/11/19 25 06/10/2024 urina lysis , dipst ick Appearance clear Not Available Mary acharya [address], [place], [address], 06/10/2024 12:45:41 06/11/19 25 06/10/2024 urina lysis , dipst ick Color light yellow Not Available [place] [address], [place], [address], 06/10/2024 12:45:41 09/13/19 24 09/13/2023 US, trans vagin al No observ ation record ed. [email or web address] [place] [address], [place], [address], 09/13/2023 18:12:32 09/13/19 24 09/13/2023 US, trans vagin al No observ ation record ed. [email or web address] [address] [facility], [place], [address], 09/13/2023 21:06:05 06/14/19 25 06/13/2024 US, pelvi s No observ ation record ed. [email or web address] [facility] [address], [place], [address], 06/13/2024 13:48:51 06/14/19 25 06/13/2024 US, trans vagin al No observ ation record ed. [email or web address] [place] [address], [place], [address], 06/13/2024 13:49:03 06/14/19 25 06/13/2024 US, jose s No observ ation record ed. samantha Sanders [address], [place], [address], 07/09/2024 09:18:16 08/20/19 25 08/16/2024 elect ravindra zepeda am No observ ation record ed. [email or web address] [facility] [address] [address], [place], [address], 08/19/2024 09:58:40 Result Notes None recorded. Problems Name Problem SNOMED Code Status Onset Date Resolution Date Notes Provider Name and Address Organization Details Recorded Time Fibromyalgia 111392646 Active 2023 Aisha claros, [facility] 4 12:39:34 Mixed anxiety and depressive disorder 297329260 Active 2023 Aisha claros, [facility] 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 4 12:40:36 History of abnormal cervical Papanicolaou smear 092509345 Active 2023 Aisha claros, [facility] 4 12:40:53 Rheumatoid arthritis 78876277 Active 2023 Aisha claros, [facility] 4 12:41:08 Problem Notes None recorded. Procedures Surgical History Date Name Laterality Status Provider Name and Address Organization Details Recorded Time 06/11/19 25 IUD Removal completed YEVGENIY Millan [address], [place], [address], [facility] 06/10/2024 14:34:33 09/13/19 24 IUD Insertion completed Rogerio Lugo MD [address], [place], [address], [place] [facility] 09/13/2023 18:14:12 08/28/19 Date of Last Pap Smear completed Aisha Wolftz [facility] 08/28/2023 12:41:32 04/05/19 Date of Last Mammogram completed Aisha Liz [facility] 08/28/2023 12:38:08 03/06/19 [facility] 12:46:47 03/06/19 [facility] 12:46:56 Imaging Results None recorded. Procedure Notes None recorded. Medical Equipment None Reported. Allergies Allergen ID Allergen Name Allergen Category Reaction Reaction Severity Criticality Documentation Date Start Date Code Code System Note Provider Name and Address Organization Details Recorded Time 66209 morphine medicatio n nausea moderate Not available 08/28/2023 7052 RxNorm [address] [facility] 12:38:07 Medications Name Sig Start Date Stop Date Status Note LastModified by Organization Details LastModified Time Mirena 21 mcg/24 hr (up to 8 years) 52 mg intrauterin e device Take 1 device by intrauter ine route. 07/08 completed Not Available Not Available Not Available venlafaxine ER 75 mg capsule,ext ended release 24 hr TAKE 1 CAPSULE BY MOUTH EVERY DAY active Not Available Not Available No t Available trazodone 50 mg tablet TAKE 1 TABLET BY MOUTH EVERY DAY 06/10 completed Not Available Not Available Not Available azithromyci n 250 mg tablet TAKE 2 TABLETS BY MOUTH TODAY, THEN TAKE 1 TABLET DAILY FOR 4 DAYS DIRECTED 06/10 completed Not Available Not Available Not Available tizanidine 4 mg tablet TAKE 1 TABLET BY MOUTH EVERY 6 HOURS NEEDED FOR MUSCLE SPASMS. active Not Available Not Available No t Available hydrocodone 5 mg-acetamin ophen 325 mg tablet TAKE 1 TABLET BY MOUTH EVERY 5 HOURS NEEDED FOR PAIN 06/10 completed Not Available Not Available Not Available prednisone 20 mg tablet TAKE 1 TABLET BY MOUTH EVERY DAY 08/27 completed Not Available Not Available Not Available prednisone 5 mg tablet PLEASE SEE ATTACHED FOR DETAILED DIRECTION S 06/10 completed Not Available Not Available Not Available venlafaxine ER 150 mg capsule,ext ended release 24 hr TAKE 1 CAPSULE BY MOUTH EVERY DAY active Not Available Not Available No t Available Wellbutrin SR 150 mg tablet, 12 hr sustained-r elease 06/10 completed Not Available Not Available Not Available amlodipine 5 mg tablet TAKE 1 TABLET BY MOUTH EVERY DAY active Not Available Not Available No t Available leflunomide 20 mg tablet TAKE 1 TABLET BY MOUTH EVERY DAY active Not Available Not Available No t Available tramadol 50 mg tablet TAKE 1 TABLET 3 TIMES A DAY BY ORAL ROUTE. 06/10 completed Not Available Not Available Not Available amoxicillin 500 mg tablet TAKE 1 TABLET BY MOUTH THREE TIMES A DAY 06/10 completed Not Available Not Available Not Available cefadroxil 500 mg capsule TAKE 1 CAPSULE BY MOUTH TWICE A DAY FOR 7 DAYS 06/10 completed Not Available Not Available Not Available [...] Available Not Available No t Available buspirone 10 mg tablet TAKE 1 TABLET BY MOUTH THREE TIMES A DAY 07/08 completed Not Available Not Available Not Available diclofenac sodium 75 mg tablet,raffaele yed release TAKE 1 TABLET BY MOUTH TWICE A DAY active Not Available Not Available No t Available iron 65 mg tablet 06/10 completed Not Available Not Available Not Available buspirone 15 mg tablet TAKE 1 TABLET BY MOUTH THREE TIMES A DAY 06/10 completed Not Available Not Available Not Available bupropion HCl XL 150 mg 24 hr tablet, extended release TAKE 1 TABLET BY MOUTH EVERY DAY 07/08 completed Not Available Not Available Not Available eszopiclone 2 mg tablet TAKE 1 TABLET BY MOUTH EVERY DAY active Not Available Not Available No t Available pregabalin 75 mg capsule PLEASE SEE ATTACHED FOR DETAILED DIRECTION S 06/10 completed Not Available Not Available Not Available pregabalin 150 mg capsule TAKE 1 CAPSULE BY MOUTH EVERY MORNING. 06/10 completed Not Available Not Available Not Available pregabalin 225 mg capsule TAKE 1 CAPSULE (225 MG TOTAL) BY MOUTH NIGHTLY 06/10 completed Not Available Not Available Not Available Zyrtec 10 mg capsule active Not Available Not Available N ot Available Orencia 125 mg/mL subcutaneou s syringe 09/12 completed Not Available Not Available Not Available Orencia ClickJect 125 mg/mL subcutaneou s auto-inject or 07/08 completed Not Available Not Available Not Available Slynd 4 mg (28) tablet active Not Available Not Available Not Available Arthritis Pain (diclofenac ) active Not Available Not Available Not Available Vitals Date Recorded Body height Body mass index (BMI) Body weight Systolic blood pressure Diastolic blood pressure Provider Name and Address Organization Details Last Updated DateTime 06/10/2024 163.2 cm 27 kg/m2 09910.03 g 150 mm[Hg] 84 mm[Hg] Alejandrinacitlaly Burgosney [facility] 12:28:41 Date Recorded Body height Body mass index (BMI) Body weight Systolic blood pressure Diastolic blood pressure Provider Name and Address Organization Details Last Updated DateTime 07/08/2024 163.2 cm 26.1 kg/m2 19763.63 g 143 mm[Hg] 77 mm[Hg] Yanet [facility] 17:20:09 Date Recorded Body height Body mass index (BMI) Body weight Systolic blood pressure Diastolic blood pressure Provider Name and Address Organization Details Last Updated DateTime 09/13/2023 163.2 cm 27.1 kg/m2 37384.19 g 158 mm[Hg] 87 mm[Hg] Yanet [facility] 17:12:06 Social History Question Answer Notes LastModified by Organizat ion Details LastModified Time Tobacco Smoking Status Former Smoker Aisha claros, [facility] 08/28/2023 12:46:33 How Many Years Have You Consumed Alcohol? 21 [email or web address] Information not available 08/28/2023 Are You Blind Or Do You Have Difficulty Seeing? No [email or web address] Information n ot available 08/28/2023 What Is Your Level Of Caffeine Consumption? Moderate [email or web address] Information not available 08/28/2023 How Much Tobacco Do You Chew? None [email or web address] Information not available 08/28/2023 In The 14 Days Before Symptom Onset, Have You Had Close Contact With A Laboratory-confirm ed COVID-19 While That Case Was Ill? No [email or web address] Information n ot available 08/28/2023 In The 14 Days Before Symptom Onset, Have You Had Close Contact With A Person Who Is Under Investigation For COVID-19 While That Person Was Ill? No [email or web address] Information not available 08/28/2023 Have You Been To An Area Known To Be High Risk For COVID-19? No [email or web address] Information not available 08/28/2023 Are You Deaf Or Do You Have Serious Difficulty Hearing? No [email or web address] Information not available 08/28/2023 What Type Of Diet Are You Following? REGULAR Information n ot available 08/28/2023 What Is The Highest Grade Or Level Of School You Have Completed Or The Highest Degree You Have Received? [id number] Information not available 08/28/2023 Are There Any Guns Present In Your Home? No [email or web address] Information not available 08/28/2023 Have You Ever Been Counseled For Unhealthy Alcohol Use? No [email or web address] Information not available 08/28/2023 Do You Use Protection During Sex? No [email or web address] Information not available 08/28/2023 Do You Use Your Seat Belt Or Car Seat Routinely? Yes [email or web address] Information not available 08/28/2023 Do You Have Smoke And Carbon Monoxide Detectors In Your Home? Yes [email or web address] Information not available 08/28/2023 At What Age Did You Start Smoking Tobacco? 19 [email or web address] Information not available 08/28/2023 How Much Tobacco Do You Smoke? No [email or web address] Information not available 08/28/2023 Do You Use Sunscreen Routinely? Yes [email or web address] Information not available 08/28/2023 How Many Years Have You Smoked Tobacco? 18 [email or web address] Information not available 08/28/2023 Have You Used IV Drugs? No [email or web address] Information not available 08/28/2023 Do You Have Difficulty Walking Or Climbing Stairs? No Information not available 08/28/2023 Sex: Unknown Functional Status Question Answer Note LastModified by Organizat ion Details LastModified Time Do you use any illicit or recreational drugs? No Information not available 08/28/2023 Do you or have you ever used any other forms of tobacco or nicotine? No [email or web address] Information not available 08/28/2023 What is your level of alcohol consumption? Occasional Information not available 08/28/2023 Are you able to walk? YESWOREST Information not available 08/28/2023 Are you able to care for yourself? 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 No [email or web address] Information not available 08/28/2023 What is your exercise level? Moderate [email or web address] Information not available 08/28/2023 Mental Status Question Answer Note LastModified by Organization D etails LastModified Time Do you feel stressed (tense, restless, nervous, or anxious, or unable to sleep at night)? [id number] [email or web address] Information not available 08/28/2023 Family History Relationship Description Onset Age of this Age Resolved Age Notes LastModified by Organization Details LastModified Time Maternal Uncle Diabetes mellitus [email or web address] Not available 08/27 12:38:08 Father Depressive disorder [email or web address] Not available 08/27 12:38:08 Father Heart disease [email or web address] Not available 08/27 12:38:08 Mother Depressive disorder [email or web address] Not available 08/27 12:38:08 Mother Diabetes mellitus [email or web address] Not available 08/27 12:38:08 Maternal Aunt Depressive disorder [email or web address] Not available 08/27 12:38:08 Maternal Aunt Diabetes mellitus Not available 08/27 12:38:08 Maternal Grandmother Diabetes mellitus [email or web address] Not available 08/27 12:38:08 Maternal Grandmother Kidney disease [email or web address] Not available 08/27 12:38:08 Maternal Grandfather Diabetes mellitus [email or web address] Not available 08/27 12:38:08 Paternal Grandfather Heart disease [email or web address] Not available 08/27 12:38:08 Medical History Condition Response Allergies (Food, seasonal, environmental ) Y Other N Drug/Latex Allergies/Reactions N Breast Cancer N Blood Transfusion N Dermatologic Disorders N Lung Disease N Defects or Inherited Disease N Breast Problem N Gestational Diabetes N Hematologic disorders N Anesthesia Complications N History of STI Y Deep Vein Thrombosis N Polycystic ovary syndrome N Anxiety Disorder Y Autoimmune disease Y Arthritis Y Infertility N Polyps N Acid Reflux (GERD) Y History of abnormal pap Y Cancer N Stroke N Varicosities N Neurologic/Epilepsy N Endometriosis N High Cholesterol N Fibromyalgia Y Headaches N Kidney Disease N Heart Problems N Thyroid Problems N Kidney or Bladder Problems N GI Problems N Eating Disorder N Anemia N Art (IVF or FET) N Psychiatric Illness N Ovarian Cancer N Diabetes N Pulmonary (TB, Asthma) N Hepatitis/Liver Disease N No Past Medical History N Eczema N Urinary Tract Infection N Abuse/Domestic Violence N Asthma N Trauma/Violence N Depression/ depression Y Heart Disease N Pre-Eclampsia N Hypertension Y Osteoporosis N Thrombophilias N Gynecological History Statement/Question Response Date of Last Mammogram 04/05/2023 Flow Moderate Date of LMP 06/28/2024 N Was last menstrual period normal Y STIs/STDs Y Date of control 09/13/2023 IUD Desired Control Method Sterilizati on On BCP's at Conception? N HPV Vaccine N Duration of Flow (days) 6 Current Control Method BCPs Age at First Child 26 Are cycles usually normal Y Frequency of Cycle (Q days) 30 Sexually Active? Y Menses Monthly Y Date of DEXA bone scan Age of first menstrual cycle 12 Date of Last Pap Smear 08/28/2023 Sexual Problems? N LMP Definite N Obstetrics History GPAL:G 5 P 3 0 2 3 Type Value Full Term 3 Spontaneous 2 Living 3 Total 5 Past Encounters Encounter ID Performer Location Encounter Start Date Encounter Closed Date Diagnosis/Indication Diagnosis SNOMED-CT Code Diagnosis ICD10 Code Diagnosis Note [id number] Rogerio Lugo MD [facility] [address] [address] 08/28/2023 11:53:25 08/29/2023 05:43:25 Gynecologic examination 87549856 Z01.419 Annual gynecologi rosina exam performed. Patient will come back in a year unless there are new symptoms. Suggest Calcium with Vitamin D if not eating in diet. Patient advised to get annual flu shot. Recommend yearly physicals and preform monthly breast exams. Genetic testing is available for patients with family history of cancer. Engage in safe sexual practices, use condoms. Encouraged to have daily exercise. Avoid tobacco and illicit drugs, moderation of alcohol. If BMI greater than 25 dietary consult advised. If you have any questions please call or email. mammogram- done laboratory evaluation - done patient has trouble with orgasm. This is a recent developmen t. To look for vulvar vaginal disease expert to make recommenda tions on either referral or treatment. [id number] Rogerio Lugo MD [facility] [address],[place] [address] 09/13/2023 17:04:09 09/14/2023 00:08:27 Insertion of intrauterine contraceptive device [id number] Z30.430 Contracept ion care management [id number] Z30.9 IUD inserted without complicati ons. She tolerated it well. [id number] Rogerio Lugo MD [facility] [address],[place] [address] 09/13/2023 18:05:37 09/14/2023 06:56:32 Mechanical complication of intrauterine contraceptive device [id number] T83.39XA [id number] YEVGENIY Millan [facility] [address],[place] [address] 06/10/2024 12:04:04 06/10/2024 14:54:16 Pain in pelvis 76184794 R10.2 UPT (-)UA done, cx sentgc/ct/ trich testing sent per pt request IUD seen partially expelled on examdiscus sed IUD removal with pt, consent reviewed and signed, IUD removed (see procedure note)we discussed BC options (Insertion of new Mirena IUD, POP, DMPA, Nexplanon) opts to start slynd, rx sent, r/b/a reviewedwi ll update pelvic u/s, orderedBP precaution s discussed , encouraged PCP f/uRTC to review pelvic u/s Time spent in visit is a total of 30 mins with at least 50% of visit consisting of counseling and review of plan of care. Contracept ion care management [id number] Z30.9 Removal of intrauterine contraceptive device done [id number] 40698 Z30.432 IUD partia lly expelled [id number] T83.89XA Venereal d isease screening 447457487 Z11.3 Dyspareunia 02277152 N94 .10 [id number] Rogerio Lugo MD [facility] [address],[place] [address] 06/13/2024 12:20:57 06/13/2024 13:25:17 Pain in pelvis 71770381 R10.2 [id number] Rogerio Lugo MD [facility] [address],[place] [address] 07/08/2024 16:08:57 07/11/2024 08:42:45 Sterilization education 891307066 Z30.09 Mass of ovary 947660506 N83.8 Endometrial polyp 081933 3669 N84.0 Menorrhagia [id number] N9 2.0 this patient is 44-year-ol d female presents for ultrasound follow-up. The patient reports menorrhagi a and underwent infertilit y. We reviewed the ultrasound . She Has to pelvic lesionss. One on the left ovary. and an endometria l polyp likely. We discussed all these issues. I spent over 30 minutes on her care in total. we agreed that a surgical treatment would be effective at treating all 4 of her issues. We discussed her issues in detail. We discussed risks, benefits, and alternativ es to treatments . We agreed to move forward with laparoscop ic Bilateral salpingect bryan with resection of left ovarian mass, hysterosco py D&C with polypectom y and endometria l ablation. The patient understand s the procedure. The procedure was described to the patient in great detail. the patient also understand s the risks. The risks were also explained in detail. She understand s that injuries May occur during surgery. She understand s these injuries can result in hospitaliz ation, more surgery, and severe illness. She understand s there is risk of hemorrhage and infection. Health Concerns Section Related Observation LastModified by Organization Detai ls LastModified Time None Recorded Concern Status LastModified by Organization Details LastModified Time None Recorded Advance Directives Directive None Recorded Payers Insurance Date Sequence Insurance Name Policy Number Policy Ureña Covered Member ID Ureña Member ID Guarantor Name 08/18/2024 1 [employer] [id number] Nyla Homeyer [id number] Nyla Homeyer 06/10/2024 1 [facility] ([facility] [id number] Nyla Homeyer [id number] Nyla Homeyer Notes Date Note Type Note Provider Name and Address Organization Details Recorded Time 09/13/2023 text/html Patient presents for IUD insertion. the procedure was explained to her in detail. The risks, benefits, and alternatives were explained. She understands the risks. She is ready to proceed. She completed the informed consent process Rogerio Lugo MD [address], [place], [address], [facility] 09/13/2023 18:14:56 06/10/2024 text/html 44yo [id number] with complaints of right sided pelvic pain with IC and irregular periodsright sided pelvic pain with IC, symptoms started shortly after Mirena IUD placement 09/2023. Most acts of IC are painful, worse with deep penetration. Periods have been longer since IUD insertion. Lasting anywhere from 3-20 days. Flow varies.does not desire future fertility neg d/c, odors, itchingneg n/v/fneg flu-like symptoms YEVGENIY Millna [address], [place], [address], [facility] 06/10/2024 14:41:15 07/08/2024 text/html this patient is 44-year-old female presents for ultrasound follow-up. The patient reports menorrhagia and underwent infertility. We reviewed the ultrasound. She Has to pelvic lesionss. One on the left ovary. and an endometrial polyp likely. We discussed all these issues. I spent over 30 minutes on her care in total. we agreed that a surgical treatment would be effective at treating all 4 of her issues. We discussed her issues in detail. We discussed risks, benefits, and alternatives to treatments. We agreed to move forward with laparoscopic Bilateral salpingectomy with resection of left ovarian mass, hysteroscopy D&C with polypectomy and endometrial ablation. The patient understands the procedure. The procedure was described to the patient in great detail. the patient also understands the risks. The risks were also explained in detail. She understands that injuries May occur during surgery. She understands these injuries can result in hospitalization, more surgery, and severe illness. She understands there is risk of hemorrhage and infection. Rogerio Lugo MD [address], [place], [address], [facility] 07/10/2024 16:07:54 OBGyn Episode Ob Episode Information Episode Created Date Number of Fetuses Patient Bloodtype Patient rh Status Prepregnancy Weight lbs Domestic Partner Domestic Partner Phone Father Name Integration Lead Status 08/28/19 24 1 CLOSED Fetus Data First Name Last Name Admitted to NICU Weight (g) Sex Living Outcome Pediatric Complications Fetus ID Race Codes Race Delivery Type 3288.54 2 M Full Term [id number] Vaginal Delivery Kahlil Calculation Initial Kahlil Date Initial Exam Date Initial Exam Provider Initial Ultrasound Date Last Menstrual Period Date Ultra Sound Weeks Gestation 0 Eighteen To Twenty Week Kahlil Update Ultra Sound Date Fundal Height At Umbil Quickening Date Ultra Sound Latest Weeks Gestation Final Kahlil Confirmed By Final Kahlil Confirmed Date Final Kahlil Date Ultra Sound Latest Days Gestation 0 0 Menstrual History Last Menstrual Date Menses Monthly On Bcp Conception Prior Menses Frequency Hcg Plus Date Menarche Onset Age Delivery Information Delivery Date Delivery Type Labor Anesthesia Weeks Gestation Incision Type Labor Labor Length Hrs Delivered By Post Complications Tubal Sterilization Discharge Date Comments 0 38 Discharge Information Feeding Method Contraceptive Method Maternal HG B and HCT Levels Ob Episode Information Episode Created Date Number of Fetuses Patient Bloodtype Patient rh Status Prepregnancy Weight lbs Domestic Partner Domestic Partner Phone Father Name Integration Lead Status 08/28/19 24 1 CLOSED Fetus Data First Name Last Name Admitted to NICU Weight (g) Sex Living Outcome Pediatric Complications Fetus ID Race Codes Race Delivery Type , Spontane ous [id number] Kahlil Calculation Initial Kahlil Date Initial Exam Date Initial Exam Provider Initial Ultrasound Date Last Menstrual Period Date Ultra Sound Weeks Gestation 0 Eighteen To Twenty Week Kahlil Update Ultra Sound Date Fundal Height At Umbil Quickening Date Ultra Sound Latest Weeks Gestation Final Kahlil Confirmed By Final Kahlil Confirmed Date Final Kahlil Date Ultra Sound Latest Days Gestation 0 0 Menstrual History Last Menstrual Date Menses Monthly On Bcp Conception Prior Menses Frequency Hcg Plus Date Menarche Onset Age Delivery Information Delivery Date Delivery Type Labor Anesthesia Weeks Gestation Incision Type Labor Labor Length Hrs Delivered By Post Complications Tubal Sterilization Discharge Date Comments 8 Discharge Information Feeding Method Contraceptive Method Maternal HG B and HCT Levels Ob Episode Information Episode Created Date Number of Fetuses Patient Bloodtype Patient rh Status Prepregnancy Weight lbs Domestic Partner Domestic Partner Phone Father Name Integration Lead Status 08/28/19 24 1 CLOSED Fetus Data First Name Last Name Admitted to NICU Weight (g) Sex Living Outcome Pediatric Complications Fetus ID Race Codes Race Delivery Type 3005.04 7 M Full Term [id number] Vaginal Delivery Kahlil Calculation Initial Kahlil Date Initial Exam Date Initial Exam Provider Initial Ultrasound Date Last Menstrual Period Date Ultra Sound Weeks Gestation 0 Eighteen To Twenty Week Kahlil Update Ultra Sound Date Fundal Height At Umbil Quickening Date Ultra Sound Latest Weeks Gestation Final Kahlil Confirmed By Final Kahlil Confirmed Date Final Kahlil Date Ultra Sound Latest Days Gestation 0 0 Menstrual History Last Menstrual Date Menses Monthly On Bcp Conception Prior Menses Frequency Hcg Plus Date Menarche Onset Age Delivery Information Delivery Date Delivery Type Labor Anesthesia Weeks Gestation Incision Type Labor Labor Length Hrs Delivered By Post Complications Tubal Sterilization Discharge Date Comments 7 39 Discharge Information Feeding Method Contraceptive Method Maternal HG B and HCT Levels Ob Episode Information Episode Created Date Number of Fetuses Patient Bloodtype Patient rh Status Prepregnancy Weight lbs Domestic Partner Domestic Partner Phone Father Name Integration Lead Status 08/28/19 24 1 CLOSED Fetus Data First Name Last Name Admitted to NICU Weight (g) Sex Living Outcome Pediatric Complications Fetus ID Race Codes Race Delivery Type 2608.15 4 M Full Term [id number] Vaginal Delivery Kahlil Calculation Initial Kahlil Date Initial Exam Date Initial Exam Provider Initial Ultrasound Date Last Menstrual Period Date Ultra Sound Weeks Gestation 0 Eighteen To Twenty Week Kahlil Update Ultra Sound Date Fundal Height At Umbil Quickening Date Ultra Sound Latest Weeks Gestation Final Kahlil Confirmed By Final Kahlil Confirmed Date Final Kahlil Date Ultra Sound Latest Days Gestation 0 0 Menstrual History Last Menstrual Date Menses Monthly On Bcp Conception Prior Menses Frequency Hcg Plus Date Menarche Onset Age Delivery Information Delivery Date Delivery Type Labor Anesthesia Weeks Gestation Incision Type Labor Labor Length Hrs Delivered By Post Complications Tubal Sterilization Discharge Date Comments 2 37 Discharge Information Feeding Method Contraceptive Method Maternal HG B and HCT Levels Ob Episode Information Episode Created Date Number of Fetuses Patient Bloodtype Patient rh Status Prepregnancy Weight lbs Domestic Partner Domestic Partner Phone Father Name Integration Lead Status 08/28/19 24 1 CLOSED Fetus Data First Name Last Name Admitted to NICU Weight (g) Sex Living Outcome Pediatric Complications Fetus ID Race Codes Race Delivery Type , Spontane ous [id number] Kahlil Calculation Initial Kahlil Date Initial Exam Date Initial Exam Provider Initial Ultrasound Date Last Menstrual Period Date Ultra Sound Weeks Gestation 0 Eighteen To Twenty Week Kahlil Update Ultra Sound Date Fundal Height At Umbil Quickening Date Ultra Sound Latest Weeks Gestation Final Kahlil Confirmed By Final Kahlil Confirmed Date Final Kahlil Date Ultra Sound Latest Days Gestation 0 0 Menstrual History Last Menstrual Date Menses Monthly On Bcp Conception Prior Menses Frequency Hcg Plus Date Menarche Onset Age Delivery Information Delivery Date Delivery Type Labor Anesthesia Weeks Gestation Incision Type Labor Labor Length Hrs Delivered By Post Complications Tubal Sterilization Discharge Date Comments 1 Discharge Information Feeding Method Contraceptive Method Maternal HG B and HCT Levels
--- NOTE | 2024-08-21 08:20 | P.PNAN_ITS ---
Anes - Initial Pre Proc Eval Procedure: Operation Date: 08/21/24 10:00 Proposed Procedures p Laparoscopic Bilateral Salpingectomy with Fulguration, Excision Lesions of Left Ovary, Hysteroscopy with Ablation, Biopsy of Endometrium and/or Polypectomy - Rogerio Lugo MD Date/Time: 08/21/24 08:20 Surgeon: Rogerio Lugo MD Pre Op Diagnosis: female sterilzation, ovarian mass,endometrialpolyp Patient Data Age: 44 Gender: F Height: 1.63 m Weight: 65 kg Allergies Allergy/AdvReac Type Severity Reaction Status Date / Time morphine Allergy Unknown Verified 05/27/10 23:04 Home Medications ?Medication ?Instructions ?Recorded ?Confirmed ?Type abatacept 125 mg/mL subcutaneous 125 mg subcut WEEKLY 08/09/24 08/21/24 History auto-injector (Orencia ClickJect) alprazolam 0.25 mg tablet 0.25 mg PO BID 08/09/24 08/09/24 History amlodipine 5 mg tablet 5 mg PO DAILY 08/09/24 08/21/24 History bupropion HCl 150 mg 24 hr tablet, 150 mg PO DAILY 08/09/24 08/21/24 History extended release buspirone 10 mg tablet 10 mg PO TID 08/09/24 08/21/24 History cetirizine 10 mg tablet (24Hour 10 mg PO DAILY 08/09/24 08/21/24 History Allergy) drospirenone (contraceptive) 4 mg 4 mg PO DAILY 08/09/24 08/21/24 History (28) tablet (Slynd) eszopiclone 2 mg tablet 2 mg PO HS 08/09/24 08/21/24 History leflunomide 20 mg tablet 20 mg PO DAILY 08/09/24 08/21/24 History pantoprazole 40 mg tablet,delayed 40 mg PO BID 08/09/24 08/21/24 History release trazodone 100 mg tablet 100 mg PO HS 08/09/24 08/21/24 History venlafaxine 150 mg 150 mg PO DAILY 08/09/24 08/21/24 History capsule,extended release 24 hr venlafaxine 75 mg capsule,extended 75 mg PO DAILY 08/09/24 08/21/24 History release 24 hr Patient hx anesthesia problems: none Family hx anesthesia problems: none Results Review: All pre-operative results and documents have been reviewed as part of the pre- operative evaluation. [facility] Past Medical History Medical History (Updated 08/21/24 @ 08:20 by Vin Vanegas DO) Anxiety Endometriosis Rheumatoid arthritis GERD (gastroesophageal reflux disease) SHAYNE (obstructive sleep apnea) Hypertension Social History Social History Years smoked: 20 Smoking status: Former smoker Tobacco type: cigarettes Smoking end date: 03/06/20 Alcohol intake: never Substance use: never Substance use type: marijuana Other substance usage details: MEDICAL MARIJUANA Last use: 08/08/24 Living arrangements: with family Spiritual care concerns: No Anes - Eval Final PreProcedure Day of Procedure 08/21/24 08:20 Patient weight: normal Heart: regular rate and rhythm Lungs: clear to auscultation Airway: Mallampati scale class II Neurological: alert and oriented Last oral intake: >/= 8 hours ASA classification: III Emergent: no Anesthetic plan: proceed Anesthesia type and monitoring: general ETT and standard monitoring Results Review: All pre-operative results and documents have been reviewed as part of the pre- operative evaluation. Informed Consent: The patient's anesthetic plan and its attendant risks and benefits were discussed with the patient/family/POA. Questions were solicited and answers provided to the satisfaction of the patient/family/POA.
[2024-08-21] MEDS: ACETAMINOPHEN 500 MG TABLET 1000 MG PO (08:33)
[2024-08-21] MEDS: LACTATED RINGERS 1,000 ML 30 ML IV CONT ×2 (08:45→11:34)
[2024-08-21] MEDS: KETOROLAC 15 MG/ML VIAL (*BKC) IV PUSH (08:46)
[2024-08-21 09:16] LABS: BEDSIDEPREGUCG Negative (Negative)
--- NOTE | 2024-08-21 09:54 | P.HP_ITS ---
H&P: HPI History of Present Illness Date/Time: 08/21/24 09:54 Chief Complaint: Menorrhagia Narrative: The patient is a 49-year-old female with pelvic masses, unwanted infertility, endometrial polyp. We agreed to perform laparoscopic bilateral salpingectomy, resection of pelvic mass, hysteroscopy D and C with possible polypectomy with endometrial ablation. She understands the risks, benefits, and alternatives. She has completed informed consent process is ready to proceed. The patient understands the details of the procedure. The procedure has been explained in detail. She understands the risks. She understands that injuries may occur that result in hospitalization, more surgery, and severe illness. She understands risk of hemorrhage and infection. She denies any chest pain or shortness of breath. She denies any nausea, vomiting, fever, chills. Review of Systems Review of Systems: All systems reviewed & are unremarkable except as noted in HPI and below Constitutional: Constitutional: Denies chills, Denies fatigue, Denies fever(s) and Denies weakness Eyes: Eyes: Denies blurry vision, Denies change in vision, Denies loss of peripheral vision, Denies loss of vision, Denies other visual disturbances and Denies eye pain ENT: Denies vertigo, Denies dizziness, Denies hearing loss, Denies mouth pain, Denies nasal obstruction, Denies neck mass and Denies neck pain Cardiovascular: Cardiovascular: Denies chest pain, Denies diaphoresis, Denies syncope, Denies leg edema and Denies dyspnea Respiratory: Respiratory: Denies chest congestion, Denies cough, Denies hemoptysis, Denies dyspnea and Denies wheezing Gastrointestinal: Gastrointestinal: Denies abdominal pain, Denies constipation, Denies diarrhea, Denies nausea and Denies vomiting Genitourinary: Genitourinary: Denies hematuria, Denies change in libido, Denies nocturia, Denies genital lesions, Denies flank pain and Denies urinary urgency Musculoskeletal: Musculoskeletal: Denies abnormal gait, Denies back pain, Denies myalgias, Denies arthralgias, Denies joint swelling, Denies muscle weakness and Denies neck pain Integumentary/Breasts: Skin/Breast: Denies swelling, Denies breast pain, Denies breast mass, Denies dry skin, Denies nipple discharge, Denies unusual bruising and Denies jaundice Neurologic: Denies Neuro-related abnormal movements, Denies Abnormal speech present, Denies abnormal gait, Denies behavioral changes, Denies confusion, Denies vertigo, Denies dizziness, Denies syncope, Denies loss of vision, Denies memory loss, Denies convulsions and Denies weakness Psychiatric: Psychiatric: Denies abnormal sleep pattern, Denies behavioral changes, Denies change in libido, Denies confusion, Denies depression, Denies anhedonia and Denies memory loss Endocrine: Endocrine: Reports no additional endocrine complaints, Denies change in libido and Denies fatigue Hematologic/Lymphatic: Hematologic/Lymphatic: Reports no additional hematologic/lymphatic complaints Allergic/Immunologic: Allergic/Immunologic: Reports no additional all ergic/immunologic complaints and Denies wheezing PMFSH Past Medical History Medical History (Updated 08/21/24 @ 09:56 by Rogerio Lugo MD) Anxiety Endometriosis Rheumatoid arthritis GERD (gastroesophageal reflux disease) SHAYNE (obstructive sleep apnea) Hypertension Social History Social History Years smoked: 20 Smoking status: Former smoker Tobacco type: cigarettes Smoking end date: 03/06/20 Alcohol intake: never Substance use: never Substance use type: marijuana Other substance usage details: MEDICAL MARIJUANA Last use: 08/08/24 Living arrangements: with family Spiritual care concerns: No Meds Home Medications and Allergies Home Medications ?Medication ?Instructions ?Recorded ?Confirmed ?Type abatacept 125 mg/mL subcutaneous 125 mg subcut WEEKLY 08/09/24 08/21/24 History auto-injector (Orencia ClickJect) alprazolam 0.25 mg tablet 0.25 mg PO BID 08/09/24 08/09/24 History amlodipine 5 mg tablet 5 mg PO DAILY 08/09/24 08/21/24 History bupropion HCl 150 mg 24 hr tablet, 150 mg PO DAILY 08/09/24 08/21/24 History extended release buspirone 10 mg tablet 10 mg PO TID 08/09/24 08/21/24 History cetirizine 10 mg tablet (24Hour 10 mg PO DAILY 08/09/24 08/21/24 History Allergy) drospirenone (contraceptive) 4 mg 4 mg PO DAILY 08/09/24 08/21/24 History (28) tablet (Slynd) eszopiclone 2 mg tablet 2 mg PO HS 08/09/24 08/21/24 History leflunomide 20 mg tablet 20 mg PO DAILY 08/09/24 08/21/24 History pantoprazole 40 mg tablet,delayed 40 mg PO BID 08/09/24 08/21/24 History release trazodone 100 mg tablet 100 mg PO HS 08/09/24 08/21/24 History venlafaxine 150 mg 150 mg PO DAILY 08/09/24 08/21/24 History capsule,extended release 24 hr venlafaxine 75 mg capsule,extended 75 mg PO DAILY 08/09/24 08/21/24 History release 24 hr Allergies Allergy/AdvReac Type Severity Reaction Status Date / Time morphine Allergy Unknown Verified 05/27/10 23:04 Vital Signs Vital Signs - 24 hr 08/21/24 08:10 Temperature 98.4 F Pulse Rate 81 Respiratory Rate 16 Blood Pressure 131/61 Pulse Oximetry 98 Oxygen Delivery Room Air Exam Const: General: cooperative, healthy appearing, comfortable and no acute distress Orientation/consciousness: oriented to person, oriented to place and oriented to time HENMT: Head: normal to inspection Ears: external ears normal Face/Nose/Sinus: Normal external nose present and normal facial exam Face and sinus: normal facial exam Eyes: General: appearance normal, both eyes and all related structures Neck: Neck: normal visual inspection, trachea midline and supple Resp: Auscultation: clear to auscultation bilaterally, no crackles, no rales, no rhonchi and no wheezes Cardio: Rate: regular rate Rhythm: regular rhythm Heart sounds: no click, no murmurs and no rubs GI: GI Palp: No abdominal tenderness, No Soft to palpation, No Tenderness to palpation present (GI) and No Palpable mass present Auscultation: normal bowel sounds Skin: General skin exam: normal color and no rashes or lesions noted Neuro: General: oriented to person, oriented to place and oriented to time Extrem: General: normal to inspection, no joint enlargement, no clubbing, cyanosis or edema, no pedal edema and no calf tenderness Psych: Appearance: grossly normal Mental Status: mental status grossly normal Speech and movement: Normal speech and movement present Assessment and Plan Assessment and plan (1) Pelvic mass: Code(s): R19.00 - Intra-abdominal and pelvic swelling, mass and lump, unspecified site Status: Acute (2) Unwanted fertility: Code(s): Z30.09 - Encounter for other general counseling and advice on contraception Status: Acute (3) Endometrial polyp: Code(s): N84.0 - Polyp of corpus uteri Status: Acute (4) Menorrhagia: Code(s): N92.0 - Excessive and frequent menstruation with regular cycle Status: Acute Plan The patient is a 49-year-old female with pelvic masses, unwanted infertility, endometrial polyp. We agreed to perform laparoscopic bilateral salpingectomy, resection of pelvic mass, hysteroscopy D and C with possible polypectomy with endometrial ablation. She understands the risks, benefits, and alternatives. She has completed informed consent process is ready to proceed.
--- NOTE | 2024-08-21 09:57 | WPDHPUPDATE1 ---
History and Physical Update Update Date/Time: 08/21/24 09:57 History and Physical has been reviewed, including an updated exam of the patient. There are NO changes in the patient's condition. Risks, benefits, and alternatives have been discussed and questions answered. Patient agrees to proceed with procedure.
--- NOTE | 2024-08-21 10:41 | S_PTH ---
PATIENT: Nyla Bass LOC: [facility] U#:[id number] AGE/SX: 44/F ROOM: RE08/21/[address]: Rogerio Lugo MD : 1980 BED: DIS: 08/21/2024 SPEC #: [id number] RECD: 08/21/24 12:28 STATUS: [place] REJared #: [id number] MAURO: 08/21/24 10:[address]: Rogerio Lugo DEPT: [facility] Surgical RECD BY: Deana Romero ENTERED: 08/21/24 12:28 SP TYPE: Surgical OTHR DR: John SeayMD Tissues: A - Fallopian Tube Bilateral B - Peritoneum Procedures: Gross and Microscopic Level 2 Hematoxylin and Eosin Stain Gross and Microscopic Level 4
--- NOTE | 2024-08-21 11:22 | SUR.OPER ---
fluid deficit 10
[2024-08-21] MEDS: fentaNYL CITRATE INJ (*CRX) 100 MCG/2 ML VIAL 25 MCG IV PUSH ×3 (11:40→11:49)
[2024-08-21] MEDS: oxyCODONE HCL (*CRX) 5 MG TAB IR PO (12:40)
--- NOTE | 2024-08-21 13:04 | P.OP_ITS ---
Procedure Note - Detailed Date of Procedure 08/21/24 Pre-op Diagnosis female sterilzation, ovarian mass,endometrial polyp, menorrhagia Post-op Diagnosis Other (Endometriosis, unwanted fertility, menorrhagia) Procedure Performed Laparoscopic bilateral salpingectomy, resection and fulguration of endometriosis, hysteroscopy with endometrial ablation. Surgeon Rogerio Lugo MD Anesthesia General Indications Pain and bleeding Findings Endometrial implants in the posterior cul-de-sac and on the dome of the bladder. No mass present. Rectum lying on left ovary-possibly causing artifact in ultrasound Description of Procedure Patient was taken the operating room. She has prepped draped in the dorsal lithotomy position after induction of general anesthesia. A 5 mm abdominal incision was made in left upper quadrant of the abdomen with scalpel. A 5 mm trocars inserted the intra-abdominal cavity under direct visualization of the scope. Pneumoperitoneum was achieved. A 5 mm periumbilical incision was made using a scalpel on the abdominal scan. A 5 mm trocar was inserted the intra- abdominal cavity under visualization of the scope. A 5 mm incision made left lower quadrant of the abdomen. A 5 mm trocar was inserted the intra-abdominal cavity and direct visualization of the scope. The bilateral fallopian tubes were removed. The paratubal tissue in the area of the uterus was grasped with the LigaSure cautery and transected after being cauterized. The paratubal tissue from the ovary to the uterine cornu was cauterized and transected with LigaSure cautery. This was all done in a bilateral fashion. The tube was transected at the area of the uterine cornua and the tubes was removed through the 5 mm trocar site. Endometriosis was then resected from the left pelvic sidewall. The ovary was suspended along with the left adnexa. This was done using a Sebastián Max suture Passer needle placed through the left lower quadrant and through the ovary using the suture does suspend the ovary. Left ureter was then dissected out completely from the pelvic brim down to the uterine artery. This some large endometrial implants were resected around the inferior medial adnexa near the cervix. Other areas were cauterized. The right pelvic sidewall contained endometrial implants-they were cauterized. An area on the dome of the bladder was cauterized. Hemostatic agent was placed over the dissected area in the left hemipelvis. The pneumoperitoneum was reduced. The trocars were removed. The skin was closed with subcuticular 4 Monocryl and covered with Dermabond. Our attention was then turned to the endometrial ablation portion of the procedure. A speculum was placed in the vagina. The cervix was grasped with a tenaculum. The cervix was dilated to approximately 8 mm with Heaton dilators. The hysteroscope was inserted. And the below findings were noted. All of the intrauterine surfaces were curettaged with a medium-size curette and the specimens were collected. Measurements of the cervix were taken using the uterine sound and the hysteroscope. The intrauterine cavity measurements were entered into the handpiece. The device was inserted into the intrauterine cavity and the array was expanded. The balloon cuff was inflated. When an adequate seal was formed the safety and energy cycles were initiated and completed. The array was collapsed, the balloon was deflated. The insert was withdrawn. The hysteroscope was reinserted and a well desiccated intrauterine cavity was observed. The patient was taken recovery room stable condition. Sponge lap and needle cou nts were correct x2. She tolerated the procedure well. Pathology Yes Complications No immediate complications Condition Stable Disposition PACU
== END 2024-08-21 13:31 | disposition home or self-care (01) ==
PROVIDERS: PCP Family Medicine; Visit Provider Obstetrics & Gynecology
PROC: 0UDB8ZZ Extraction of Endometrium, Via Natural or Artificial Opening Endoscopic (ICD-10-PCS; CPT 58558; principal; 2024-08-21 10:00)
DX: Z30.2 Encounter for sterilization (principal); N84.0 Polyp of corpus uteri; N80.352 Endometriosis of the left pelvic sidewall, unspecified depth; N80.329 Endometriosis of the posterior cul-de-sac, unspecified depth; N80.A0 Endometriosis of bladder, unspecified depth; G89.18 Other acute postprocedural pain; I10 Essential (primary) hypertension; G47.33 Obstructive sleep apnea (adult) (pediatric); K21.9 Gastro-esophageal reflux disease without esophagitis; F41.9 Anxiety disorder, unspecified; N80.9 Endometriosis, unspecified; M06.9 Rheumatoid arthritis, unspecified; F12.90 Cannabis use, unspecified, uncomplicated; Z87.891 Personal history of nicotine dependence
CPT/HCPCS: 58661; 58563; 58662; 88302; 88305; A9270; J1100; J1885; J2003; J2250; J2405; J2704; J3010; J7030; J7120